=== PATIENT | male | born 1965 ===

== ENCOUNTER 2017-05-26 18:00 | Inpatient (IN) | payer OTHER ==
[~2017-05-26 18:00] MED LIST: Iopamidol 755 MG/ML 50 ML Bottle IV ONE
[2017-05-26] MEDS ORDERED: Sodium Chloride 0.9% 1,000 ML IV ONE (18:34)
[2017-05-26] MEDS ORDERED: Acetaminophen 325 MG Tab PO ONE (18:35)
--- NOTE | 2017-05-26 18:44 | EDM.PDOC ---
ED HPI GENERAL MEDICAL PROBLEM - General Chief Complaint: Fever Stated Complaint: PAIN IN RIGHT LEG Time Seen by Provider: 05/26/17 18:39 Source of Information: Reports: Patient History Limitations: Reports: No Limitations - History of Present Illness INITIAL COMMENTS - FREE TEXT/NARRATIVE: HISTORY AND PHYSICAL: History of present illness: Patient is a 52-year-old male who presents to the emergency room today with complaints of redness and swelling to the right lateral calf. He states that this redness and swelling started approximately one week ago and has been increasingly getting worse. He does have a history of venous stasis ulcer to the right lower extremity. Has not recently had any injury, trauma, numbness or tingling to the right lower extremity. Denies any fever, chills, chest pain, shortness of breath, cough, abdominal pain, nausea, vomiting or diarrhea. Patient is ambulatory, does have increased pain to the right leg. Denies any past medical history including diabetes. Primary language is Serbian. [employer] services have been used for translation purposes. Review of systems: As per history of present illness and below otherwise all systems reviewed and negative. Past medical history: As per history of present illness and as reviewed below otherwise noncontributory. Surgical history: As per history of present illness and as reviewed below otherwise noncontributory. Social history: No reported history of drug or alcohol abuse. Family history: As per history of present illness and as reviewed below otherwise noncontributory. Physical exam: General: Nontoxic-appearing 52-year-old male. Alert and oriented. He is Serbian-speaking. Modi no acute distress. HEENT: Atraumatic, normocephalic, pupils reactive, negative for conjunctival pallor or scleral icterus, mucous membranes moist, throat clear, neck supple, nontender, trachea midline. Lungs: Clear to auscultation, breath sounds equal bilaterally, chest nontender. Heart: S1S2, regular, negative for clicks, rubs, or JVD. Abdomen: Soft, nondistended, nontender. Negative for masses or hepatosplenomegaly. Negative for costovertebral tenderness. Pelvis: Stable nontender. Genitourinary: Deferred. Rectal: Deferred. Extremities/Skin: Atraumatic, was all extremities per self without deficits or difficulty. The right calf is measuring 18-1/2 inches, with a diffuse area of erythema and soft tissue swelling that measures approximately 7 cm x 7 cm with irregular border. Venous stasis ulcer noted from medial ankle to the top of the foot, pedal pulses palpable. Left calf measures 16-1/2 inches, no erythema or swelling noted. negative for cords or calf pain. Neurovascular unremarkable. Neuro: Awake, alert, oriented. Cranial nerves II through XII unremarkable. Cerebellum unremarkable. Motor and sensory unremarkable throughout. Exam nonfocal. D-dimer was elevated and a right lower extremity venous ultrasound was ordered. Dr. Cantrell was consult on this case. Is agreeable to keeping him as inpatient for cellulitis. He does request that a CTA be added on to his orders. Vancomycin has been ordered per Óscar's request. Since vitals remained stable. He is agreeable to staying for IV antibiotics. Denies any further questions at this time. 2030- Dr. Cantrell here with patient. Diagnostics: CBC, CMP, blood cultures 2, lactic acid, x-ray right tib-fib Therapeutics: Tylenol, IV fluid Impression: Cellulitis Plan: Inpatient admission to [facility] for Cellulitis Definitive disposition and diagnosis as appropriate pending reevaluation and review of above. Duration: Day(s): Location: Reports: Lower Extremity, Right Right Lower Leg Pain Score (Numeric/FACES): 9 - Related Data Allergies Allergy/AdvReac Type Severity Reaction Status Date / Time No Known Allergies Allergy Verified 05/26/17 18:35 Home Meds: Home Meds . [No Known Home Meds] 05/26/17 [History] ED ROS GENERAL - Review of Systems Review Of Systems: ROS reveals no pertinent complaints other than HPI. ED EXAM, SKIN/RASH Exam: See Below (See dictation) Course - Vital Signs Last Recorded V/S: Last Vital Signs Temp 101.4 F H 05/26/17 18:22 Pulse 106 H 05/26/17 18:22 Resp 16 05/26/17 18:22 BP 159/80 H 05/26/17 18:22 Pulse Ox 98 05/26/17 18:22 - Orders/Labs/Meds Orders: Active Orders 24 hr Category Date Time Status Ang Chest [CT] Stat Exams 05/26/17 19:42 Ordered Tibia Fibula Rt [CR] Stat Exams 05/26/17 18:34 Taken Venous Doppler Lwr Ext Rt [US] Stat Exams 05/26/17 19:27 Taken CULTURE BLOOD [BC] Stat Lab 05/26/17 18:52 Received CULTURE BLOOD [BC] Stat Lab 05/26/17 18:59 Received Vancomycin [Vancocin] 1 gm Med 05/26/17 19:42 Active Sodium Chloride 0.9% [Normal Saline] 250 ml IV ONETIME Blood Culture x2 Reflex Set [OM.PC] Stat Oth 05/26/17 18:35 Ordered Medication Orders Vancomycin HCl 1 gm/ Sodium (Chloride) 250 mls @ 166 mls/hr IV ONETIME ONE Stop: 05/26/17 21:12 Labs: Laboratory Tests 05/26/17 05/26/17 05/26/17 Range/Units 18:52 18:52 18:52 WBC 12.70 H (4.0-11.0) K/uL RBC 5.28 (4.50-5.90) M/uL Hgb 16.2 (13.0-17.0) g/dL Hct 47.4 (38.0-50.0) % MCV 89.8 (80.0-98.0) fL MCH 30.7 (27.0-32.0) pg MCHC 34.2 (31.0-37.0) g/dL RDW Std Deviation 44.1 (28.0-62.0) fl RDW Coeff of Min 14 (11.0-15.0) % Plt Count 149 L (150-400) K/uL MPV 10.30 (7.40-12.00) fL Neut % (Auto) 79.3 (48.0-80.0) % Lymph % (Auto) 11.4 L (16.0-40.0) % Kidder % (Auto) 8.7 (0.0-15.0) % Eos % (Auto) 0.4 (0.0-7.0) % Baso % (Auto) 0.2 (0.0-1.5) % Neut # (Auto) 10.1 H (1.4-5.7) K/uL Lymph # (Auto) 1.5 (0.6-2.4) K/uL Kidder # (Auto) 1.1 H (0.0-0.8) K/uL Eos # (Auto) 0.1 (0.0-0.7) K/uL Baso # (Auto) 0.0 (0.0-0.1) K/uL Nucleated RBC % 0.0 /100WBC Nucleated RBCs # 0 K/uL D-Dimer, Quantitative (0.0-0.52) mg/LFEU Lactate 3.8 H (0.20-2.00) mmol/L Sodium 142 (136-146) mmol/L Potassium 4.1 (3.5-5.1) mmol/L Chloride 106 (98-110) mmol/L Carbon Dioxide 23 (21-31) mmol/L BUN 21 (6.0-23.0) mg/dL Creatinine 1.2 (0.6-1.5) mg/dL Est Cr Clr Drug Dosing 78.25 mL/min Estimated GFR (MDRD) > 60.0 ml/min Glucose 134 H (60-110) mg/dL Calcium 9.8 (8.8-10.8) mg/dL Total Bilirubin 0.8 (0.1-1.5) mg/dL AST 25 (5-40) IU/L ALT 28 (8-54) IU/L Alkaline Phosphatase 113 (40-150) Total Protein 8.3 H (6.0-8.0) g/dL Albumin 4.6 (3.5-5.0) g/dL Globulin 3.7 H (2.0-3.5) g/dL Albumin/Globulin Ratio 1.2 L (1.3-2.8) 05/26/ Range/Units 18:52 WBC (4.0-11.0) K/uL RBC (4.50-5.90) M/uL Hgb (13.0-17.0) g/dL Hct (38.0-50.0) % MCV (80.0-98.0) fL MCH (27.0-32.0) pg MCHC (31.0-37.0) g/dL RDW Std Deviation (28.0-62.0) fl RDW Coeff of Min (11.0-15.0) % Plt Count (150-400) K/uL MPV (7.40-12.00) fL Neut % (Auto) (48.0-80.0) % Lymph % (Auto) (16.0-40.0) % Kidder % (Auto) (0.0-15.0) % Eos % (Auto) (0.0-7.0) % Baso % (Auto) (0.0-1.5) % Neut # (Auto) (1.4-5.7) K/uL Lymph # (Auto) (0.6-2.4) K/uL Kidder # (Auto) (0.0-0.8) K/uL Eos # (Auto) (0.0-0.7) K/uL Baso # (Auto) (0.0-0.1) K/uL Nucleated RBC % /100WBC Nucleated RBCs # K/uL D-Dimer, Quantitative 1.23 H (0.0-0.52) mg/LFEU Lactate (0.20-2.00) mmol/L Sodium (136-146) mmol/L Potassium (3.5-5.1) mmol/L Chloride (98-110) mmol/L Carbon Dioxide (21-31) mmol/L BUN (6.0-23.0) mg/dL Creatinine (0.6-1.5) mg/dL Est Cr Clr Drug Dosing mL/min Estimated GFR (MDRD) ml/min Glucose (60-110) mg/dL Calcium (8.8-10.8) mg/dL Total Bilirubin (0.1-1.5) mg/dL AST (5-40) IU/L ALT (8-54) IU/L Alkaline Phosphatase (40-150) Total Protein (6.0-8.0) g/dL Albumin (3.5-5.0) g/dL Globulin (2.0-3.5) g/dL Albumin/Globulin Ratio (1.3-2.8) Meds: Medications Generic Name Dose Route Start Last Admin Trade Name Freq PRN Reason Stop Dose Admin Vancomycin HCl 1 gm/ Sodium 250 mls @ 166 mls/hr 05/26/17 19:42 Chloride IV 05/26/17 21:12 ONETIME ONE Discontinued Medications Generic Name Dose Route Start Last Admin Trade Name Freq PRN Reason Stop Dose Admin Acetaminophen 650 mg 05/26/17 18:35 05/26/17 19:05 Tylenol PO 05/26/17 18:36 650 mg NOW ONE Administration Sodium Chloride 1,000 mls @ 999 mls/hr 05/26/17 18:34 05/26/17 19:04 Normal Saline IV 05/26/17 19:34 999 mls/hr STAT ONE Administration Departure - Departure Time of Disposition: 20:32 Disposition: Admitted As Inpatient 65 Clinical Impression: Cellulitis Qualifiers: Site of cellulitis: extremity Site of cellulitis of extremity: lower extremity Laterality: right Qualified Code(s): L03.115 - Cellulitis of right lower limb - Discharge Information - My Orders Last 24 Hours: My Active Orders 05/26/17 18:34 Tibia Fibula Rt [CR] Stat 05/26/17 18:35 Blood Culture x2 Reflex Set [OM.PC] Stat 05/26/17 18:52 CULTURE BLOOD [BC] Stat 05/26/17 18:59 CULTURE BLOOD [BC] Stat 05/26/17 19:27 Venous Doppler Lwr Ext Rt [US] Stat 05/26/17 19:42 Ang Chest [CT] Stat Vancomycin [Vancocin] 1 gm Sodium Chloride 0.9% [Normal Saline] 250 ml IV ONETIME - Assessment/Plan Last 24 Hours: My Active Orders 05/26/17 18:34 Tibia Fibula Rt [CR] Stat 05/26/17 18:35 Blood Culture x2 Reflex Set [OM.PC] Stat 05/26/17 18:52 CULTURE BLOOD [BC] Stat 05/26/17 18:59 CULTURE BLOOD [BC] Stat 05/26/17 19:27 Venous Doppler Lwr Ext Rt [US] Stat 05/26/17 19:42 Ang Chest [CT] Stat Vancomycin [Vancocin] 1 gm Sodium Chloride 0.9% [Normal Saline] 250 ml IV ONETIME
[2017-05-26 19:23] LABS: CHLORIDE,CL 106 mmol/L (98-110); SODIUM,NA 142 mmol/L (136-146)
--- NOTE | 2017-05-26 20:45 | PCM.HP ---
H&P History of Present Illness - General Date of Service: 05/26/17 Admit Problem/Dx: Cellulites Source of Information: Patient, Chief Compliance Officer History Limitations: Reports: No Limitations - History of Present Illness Initial Comments - Free Text/Narative: 52-year-old Greenlandic only speaking male presenting to emergency department with chief complaint of redness and swelling to his right lateral calf 1 week. History is obtained through wheel buffer. Patient states is he began to have pain with associated redness and swelling to his right lower calf approximately one week ago. Since that time it has been steadily getting worse. He does have a history of venous stasis ulcer to the right lower extremity. Denies any recent trauma, numbness, tingling, or decreased range of motion. Patient denies any shortness of breath or hemoptysis and has no history of claudication. Patient currently denies any fever, chills, chest pain, palpitations, shortness breath, syncopal episodes, focal neurologic deficits, nausea, vomiting, or diarrhea. He takes no medications at home and denies diabetes. In the emergency department CBC revealed leukocytosis of 12.7 K, an elevated lactate at 3.8, with positive d-dimer 1.23. CMP was unremarkable. Plain films of tibia-fibula, venous Doppler, and CTA of chest were ordered but results unavailable at time of dictation. They will be followed up but patient has low probability of PE by well's criteria. Patient was febrile with maximum temp of 103 and tachycardic with maximum heart rate of 106. Normal O2 saturations with elevated blood pressure 159/80. Blood cultures were obtained and patient was started on vancomycin IV in the emergency department. Patient was admitted for sepsis secondary cellulitis. Right Lower Leg Pain Score (Numeric/FACES): 9 - Related Data Allergies/Adverse Reactions: Allergies Allergy/AdvReac Type Severity Reaction Status Date / Time No Known Allergies Allergy Verified 05/26/17 18:35 Home Medications: Home Meds . [No Known Home Meds] 05/26/17 [History] Past Medical History Other Musculoskeletal History: leg ulcer RLE - Infectious Disease History Infectious Disease History: Reports: Chicken Pox Social & Family History - Tobacco Use Smoking Status *Q: Current Every Day Smoker Years of Tobacco use: 20 Packs/Tins Daily: 0.1 - Caffeine Use Caffeine Use: Reports: Coffee - Alcohol Use Number of Drinks Per Day: 4 - Recreational Drug Use Recreational Drug Use: No H&P Review of Systems - Review of Systems: Review Of Systems: See Below General: Reports: Fever, Chills. Denies: Weakness, Fatigue HEENT: Denies: Headaches, Sore Throat Pulmonary: Denies: Shortness of Breath, Wheezing, Cough, Sputum Cardiovascular: Denies: Chest Pain, Palpitations, Syncope Gastrointestinal: Denies: Abdominal Pain, Black Stool, Bloody Stool, Nausea, Vomiting Genitourinary: Denies: Dysuria, Hematuria Musculoskeletal: Reports: Leg Pain. Denies: Neck Pain Skin: Reports: Mottled, Dryness, Change in Color. Denies: Cyanosis Psychiatric: Denies: Confusion Neurological: Denies: Confusion, Dizziness, Headache Hematologic/Lymphatic: Denies: Anemia Exam - Exam Exam: See Below - Vital Signs Vital Signs: Last Vital Signs Temp 103 F H 05/26/17 20:35 Pulse 98 05/26/17 20:35 Resp 19 05/26/17 20:35 BP 158/89 H 05/26/17 20:35 Pulse Ox 98 05/26/17 20:35 Weight: 100 kg - Exam Quality Assessment: DVT Prophylaxis General: Alert, Oriented, Cooperative HEENT: Conjunctiva Clear, EACs Clear, EOMI, Hearing Intact, Mucosa Moist & [place] , Nares Patent, Normal Nasal Septum, Posterior Pharynx Clear, PERRLA Neck: Supple, Trachea Midline, 2 Lungs: Clear to Auscultation, Normal Respiratory Effort Cardiovascular: Regular Rhythm, Normal S1, Normal S2, Tachycardia GI/Abdominal Exam: Normal Bowel Sounds, Soft, Non-Tender, No Organomegaly, No Distention Rectal (Males) Exam: Prostate Normal Back Exam: Normal Inspection Extremities: Normal Capillary Refill, Pedal Edema, Leg Pain, Increased Warmth, Redness Peripheral Pulses: 2+: Radial (L), Radial (R), Posterior Tibial (L), Posterior Tibial (R), Dorsalis Pedis (L), Dorsalis Pedis (R) Skin: Warm, Dry, Intact, Rash, Other (erythema to right lateral lower extremity to appoximately 6 inches above ankle on anteriorolateral surface) Neurological: Cranial Nerves Intact, Reflexes Equal Bilateral Neuro Extensive - Mental Status: Alert, Oriented x3, Normal Mood/Affect, Normal Cognition Neuro Extensive - Motor, Sensory, Reflexes: CN II-XII Intact Psychiatric: Alert, Normal Affect, Normal Mood - Patient Data Result Diagrams: 05/26/17 18:52 05/26/17 18:52 *Q Meaningful Use (ADM) - VTE *Q VTE Criteria *Q: - Stroke *Q Stroke Criteria *Q: - AMI *Q AMI Criteria *Q: - Problem List (1) Sepsis SNOMED Code(s): 41844558 ICD Code: A41.9 - SEPSIS, UNSPECIFIED ORGANISM Status: Suspected Priority : High Current Visit: Yes Qualifiers: Sepsis type: methicillin resistant Staphylococcus aureus Qualified Code(s) : A41.02 - Sepsis due to Methicillin resistant Staphylococcus aureus (2) Cellulitis SNOMED Code(s): 874798734 ICD Code: L03.90 - CELLULITIS, UNSPECIFIED Status: Acute Priority: High Current Visit: Yes Qualifiers: Site of cellulitis: extremity Site of cellulitis of extremity: lower extremity Laterality: right Qualified Code(s): L03.115 - Cellulitis of right lower limb Problem List Initiated/Reviewed/Updated: Yes Orders Last 24hrs: Medication Orders Vancomycin HCl 1 gm/ Sodium (Chloride) 250 mls @ 166 mls/hr IV ONETIME ONE Stop: 05/26/17 21:12 Last Admin: 05/26/17 20:33 Dose: 166 mls/hr Assessment/Plan Comment:: 52-year-old male admitted sepsis secondary to cellulitis of the right lower extremity. Sepsis: Secondary to cellulitis. Will treat with vancomycin. Patient received 1 L normal saline in ED we'll continue IVF assess patient with normal saline 250 mL's per hour with lactate every 4 hours until less than 2. Cellulitis: As above treat with vancomycin. Patient has this history of venous ulcers will get A1c to rule out diabetes. VTE proph: Lovenox, SCD Dispo: 2-3 days
[2017-05-26] MEDS ORDERED: Temazepam 15 MG Cap PO PRN (21:07)
[2017-05-26] MEDS ORDERED: Morphine 10 MG/ML Syringe IVPUSH PRN (21:07)
[2017-05-26] MEDS ORDERED: Ondansetron 4 MG Tab.DIS PO PRN (21:07)
[2017-05-26] MEDS: Sodium Chloride 0.9% 1,000 ML IV SCH (21:28)
[2017-05-26] MEDS: oxyCODONE 5 MG Tab PO PRN (21:48)
[2017-05-26] MEDS: Enoxaparin 40 MG/0.4 ML Syringe SUBCUT SCH (21:50)
[2017-05-26] MEDS ORDERED: Pneumococcal Polyvalent-23 Vaccine 0.5 ML SDV IM ONE (23:41)
[2017-05-27] MEDS: Acetaminophen 325 MG Tab PO PRN ×3 (00:09→17:46)
[2017-05-27] MEDS: Sodium Chloride 0.9% 1,000 ML IV SCH ×4 (03:26→21:17)
[2017-05-27] MEDS: oxyCODONE 5 MG Tab PO PRN ×3 (03:33→17:47)
[2017-05-27 05:57] LABS: CHLORIDE,CL 108 mmol/L (98-110); SODIUM,NA 135 mmol/L (136-146)
[2017-05-27] MEDS ORDERED: Vancomycin 1.5 GM in Sodium Chloride 0.9% 500 ML IV SCH (06:00)
[2017-05-27] MEDS ORDERED: Vancomycin 1 GM, Vancomycin 500 MG in Sodium Chloride 0.9% 500 ML IV SCH (06:13)
[2017-05-27] MEDS: Vancomycin 1 GM, Vancomycin 500 MG in Sodium Chloride 0.9% 500 ML IV SCH ×2 (06:40→18:46)
[2017-05-27] MEDS ORDERED: Morphine 2 MG/ML Syringe IVPUSH PRN (07:29)
--- NOTE | 2017-05-27 09:00 | PCM.PN ---
- General Info Date of Service: 05/27/17 Admission Dx/Problem (Free Text): Cellulites Subjective Update: Still having considerable pain to his R lower extremity. Fever overnight at 0400. No n/v, diarrhea, or constipation. Eating and drinking well. Functional Status: Reports: Pain Controlled, Tolerating Diet - Review of Systems General: Reports: Fever, Fatigue HEENT: Denies: Headaches, Visual Changes Pulmonary: Denies: Shortness of Breath, Cough Cardiovascular: Reports: Edema. Denies: Chest Pain, Palpitations Gastrointestinal: Denies: Abdominal Pain, Constipation, Diarrhea, Nausea, Vomiting Genitourinary: Denies: Dysuria Musculoskeletal: Reports: Leg Pain. Denies: Neck Pain Neurological: Denies: Confusion, Dizziness Psychiatric: Denies: Confusion - Patient Data Vitals - Most Recent: Last Vital Signs Temp 100.1 F 05/27/17 08:20 Pulse 93 05/27/17 08:20 Resp 16 05/27/17 08:20 BP 133/73 05/27/17 08:20 Pulse Ox 98 05/27/17 08:20 Weight - Most Recent: 100 kg I&O - Last 24 Hours: Intake & Output 05/26/17 05/27/17 05/27/17 22:59 06:59 14:59 Intake Total 2280 Output Total 520 Balance 1760 Lab Results Last 24 Hours: Laboratory Results - last 24 hr 05/26/17 05/27/17 05/27/17 Range/Units 21:20 01:00 05:18 WBC 12.93 H (4.0-11.0) K/uL RBC 4.65 (4.50-5.90) M/uL Hgb 13.9 (13.0-17.0) g/dL Hct 41.1 (38.0-50.0) % MCV 88.4 (80.0-98.0) fL MCH 29.9 (27.0-32.0) pg MCHC 33.8 (31.0-37.0) g/dL RDW Std Deviation 44.2 (28.0-62.0) fl RDW Coeff of Min 14 (11.0-15.0) % Plt Count 111 L (150-400) K/uL MPV 10.30 (7.40-12.00) fL Neut % (Auto) 85.9 H (48.0-80.0) % Lymph % (Auto) 6.2 L (16.0-40.0) % Leon % (Auto) 7.7 (0.0-15.0) % Eos % (Auto) 0.0 (0.0-7.0) % Baso % (Auto) 0.2 (0.0-1.5) % Neut # (Auto) 11.1 H (1.4-5.7) K/uL Lymph # (Auto) 0.8 (0.6-2.4) K/uL Leon # (Auto) 1.0 H (0.0-0.8) K/uL Eos # (Auto) 0.0 (0.0-0.7) K/uL Baso # (Auto) 0.0 (0.0-0.1) K/uL Nucleated RBC % 0.0 /100WBC Nucleated RBCs # 0 K/uL Lactate 1.1 1.1 (0.20-2.00) mmol/L Sodium (136-146) mmol/L Potassium (3.5-5.1) mmol/L Chloride (98-110) mmol/L Carbon Dioxide (21-31) mmol/L BUN (6.0-23.0) mg/dL Creatinine (0.6-1.5) mg/dL Est Cr Clr Drug Dosing mL/min Estimated GFR (MDRD) ml/min Glucose (60-110) mg/dL Hemoglobin A1c (0.0-6.0) % Calcium (8.8-10.8) mg/dL 05/27/17 05/27/17 Range/Units 05:18 05:18 WBC (4.0-11.0) K/uL RBC (4.50-5.90) M/uL Hgb (13.0-17.0) g/dL Hct (38.0-50.0) % MCV (80.0-98.0) fL MCH (27.0-32.0) pg MCHC (31.0-37.0) g/dL RDW Std Deviation (28.0-62.0) fl RDW Coeff of Min (11.0-15.0) % Plt Count (150-400) K/uL MPV (7.40-12.00) fL Neut % (Auto) (48.0-80.0) % Lymph % (Auto) (16.0-40.0) % Leon % (Auto) (0.0-15.0) % Eos % (Auto) (0.0-7.0) % Baso % (Auto) (0.0-1.5) % Neut # (Auto) (1.4-5.7) K/uL Lymph # (Auto) (0.6-2.4) K/uL Leon # (Auto) (0.0-0.8) K/uL Eos # (Auto) (0.0-0.7) K/uL Baso # (Auto) (0.0-0.1) K/uL Nucleated RBC % /100WBC Nucleated RBCs # K/uL Lactate (0.20-2.00) mmol/L Sodium 135 L (136-146) mmol/L Potassium 3.4 L (3.5-5.1) mmol/L Chloride 108 (98-110) mmol/L Carbon Dioxide 18 L (21-31) mmol/L BUN 14 (6.0-23.0) mg/dL Creatinine 1.0 (0.6-1.5) mg/dL Est Cr Clr Drug Dosing 104.88 mL/min Estimated GFR (MDRD) > 60.0 ml/min Glucose 141 H (60-110) mg/dL Hemoglobin A1c 5.5 (0.0-6.0) % Calcium 7.9 L (8.8-10.8) mg/dL Med Orders - Current: Current Medications Acetaminophen (Tylenol) 650 mg PO Q4H PRN PRN Reason: Pain (Mild 1-3)/fever Last Admin: 05/27/17 04:32 Dose: 650 mg Enoxaparin Sodium (Lovenox) 40 mg SUBCUT DAILY [facility] Last Admin: 05/26/17 21:50 Dose: 40 mg Sodium Chloride (Normal Saline) 1,000 mls @ 250 mls/hr IV ASDIRECTED [facility] Last Admin: 05/27/17 03:26 Dose: 250 mls/hr Vancomycin HCl 1 gm/Vancomycin HCl 500 mg/ Sodium Chloride 500 mls @ 333.333 mls/hr IV Q12H [facility] Last Admin: 05/27/17 06:40 Dose: 333.333 mls/hr Morphine Sulfate (Morphine) 2 mg IVPUSH Q2H PRN PRN Reason: Pain (severe 7-10) Ondansetron HCl (Zofran Odt) 4 mg PO Q4H PRN PRN Reason: nausea, able to take PO Oxycodone HCl (Oxycodone) 5 mg PO Q4H PRN PRN Reason: Pain (moderate 4-6) Last Admin: 05/27/17 03:33 Dose: 5 mg Temazepam (Restoril) 15 mg PO BEDTIME PRN PRN Reason: Sleep Last Admin: 05/26/17 21:48 Dose: 15 mg Vancomycin HCl (Pharmacy To Dose - Vancomycin) 1 dose .XX ASDIRECTED [facility] Discontinued Medications Acetaminophen (Tylenol) 650 mg PO NOW ONE Stop: 05/26/17 18:36 Last Admin: 05/26/17 19:05 Dose: 650 mg Sodium Chloride (Normal Saline) 1,000 mls @ 999 mls/hr IV STAT ONE Stop: 05/26/17 19:34 Last Admin: 05/26/17 19:04 Dose: 999 mls/hr Vancomycin HCl 1 gm/ Sodium (Chloride) 250 mls @ 166 mls/hr IV ONETIME ONE Stop: 05/26/17 21:12 Last Admin: 05/26/17 20:33 Dose: 166 mls/hr Vancomycin HCl 1.5 gm/ Sodium (Chloride) 500 mls @ 333.333 mls/hr IV Q12H [facility] Last Admin: 05/27/17 07:32 Dose: Not Given Iopamidol (Isovue-370 (76%)) 50 ml IV .STK-MED ONE Stop: 05/26/17 07:26 Morphine Sulfate (Morphine) 2 mg IVPUSH Q2H PRN PRN Reason: Pain (severe 7-10) Stop: 05/27/17 21:09 Pneumococcal Polyvalent Vaccine (Pneumovax 23) 0.5 ml IM .ONCE ONE Stop: 05/26/17 23:42 - Exam Quality Assessment: DVT Prophylaxis General: Alert, Oriented, Cooperative, No Acute Distress HEENT: Pupils Equal, Pupils Reactive, EOMI, Mucous Membr. Moist/[place] Neck: Supple Lungs: Clear to Auscultation, Normal Respiratory Effort Cardiovascular: Regular Rate, Regular Rhythm GI/Abdominal Exam: Normal Bowel Sounds, Soft, Non-Tender, No Organomegaly, No Distention Back Exam: Normal Inspection Extremities: Non-Tender, Normal Capillary Refill, Pedal Edema, Leg Pain, Increased Warmth, Redness (Erythema improving but still warm and tender with +2 charlie to right anterolater lower leg) Skin: Warm, Dry, Intact Wound/Incisions: Healing Well Neurological: No New Focal Deficit Psy/Mental Status: Alert, Normal Affect, Normal Mood - Problem List & Annotations (1) Sepsis SNOMED Code(s): 03369044 Code(s): A41.9 - SEPSIS, UNSPECIFIED ORGANISM Status: Resolved Priority: High Current Visit: Yes Qualifiers: Sepsis type: methicillin resistant Staphylococcus aureus Qualified Code(s) : A41.02 - Sepsis due to Methicillin resistant Staphylococcus aureus (2) Cellulitis SNOMED Code(s): 635583968 Code(s): L03.90 - CELLULITIS, UNSPECIFIED Status: Acute Priority: High Current Visit: Yes Qualifiers: Site of cellulitis: extremity Site of cellulitis of extremity: lower extremity Laterality: right Qualified Code(s): L03.115 - Cellulitis of right lower limb - Problem List Review Problem List Initiated/Reviewed/Updated: Yes - My Orders Last 24 Hours: My Active Orders 05/26/17 21:07 Patient Status [ADT] Routine Intake and Output [RC] Q12H Oxygen Therapy [RC] PRN Up With Assistance [RC] ASDIRECTED VTE/DVT Education [RC] PER UNIT ROUTINE Vital Signs [RC] Q4H Acetaminophen [Tylenol] 650 mg PO Q4H PRN Ondansetron [Zofran ODT] 4 mg PO Q4H PRN Temazepam [Restoril] 15 mg PO BEDTIME PRN oxyCODONE 5 mg PO Q4H PRN Resuscitation Status Routine 05/26/17 21:08 Antiembolic Devices [RC] PER UNIT ROUTINE Sequential Compression Device [OM.PC] Per Unit Routine 05/26/17 21:15 Enoxaparin [Lovenox] 40 mg SUBCUT DAILY Sodium Chloride 0.9% [Normal Saline] 1,000 ml IV ASDIRECTED Vancomycin Pharmacy to Dose [Pharmacy to Dose - Vancomycin] 1 dose .XX ASDIRECTED 05/27/17 06:00 Vancomycin 1 gm Vancomycin 500 mg Sodium Chloride 0.9% [Normal Saline] 500 ml IV Q12H 05/27/17 07:29 Morphine 2 mg IVPUSH Q2H PRN 05/27/17 Breakfast Regular Diet [DIET] 05/28/17 05:11 BASIC METABOLIC PANEL,BMP [CHEM] AM CBC WITH AUTO DIFF [HEME] AM 05/29/17 05:11 BASIC METABOLIC PANEL,BMP [CHEM] AM CBC WITH AUTO DIFF [HEME] AM 05/30/17 05:11 BASIC METABOLIC PANEL,BMP [CHEM] AM CBC WITH AUTO DIFF [HEME] AM - Plan Plan:: 52-year-old male admitted sepsis secondary to cellulitis of the right lower extremity. Sepsis: Lactate resolved will slow IVF resus to 125 ml/hr. Cont. vancomycin day 2. Cellulitis: As above treat with vancomycin. Patient has this history of venous ulcers. A1c 5.5. Fever early this am 101.8 0400. R lower extremity x-ray: No acute osseous injury or imaging evidence of osteomyelitis. Doppler: No DVT CTA : unremakable, no PE, aortic dissection, or pneumonia VTE proph: Lovenox, SCD Dispo: 2-3 days
[2017-05-27] MEDS ORDERED: Potassium Chloride 20 MEQ Tab.ER PO ONE (09:50)
[2017-05-27] MEDS ORDERED: Calcium Carbonate 500 MG Tab.Chew PO ONE (10:03)
[2017-05-27] MEDS: Enoxaparin 40 MG/0.4 ML Syringe SUBCUT SCH (10:09)
[2017-05-27] MEDS ORDERED: oxyCODONE 5 MG Tab PO ONE (10:46)
--- NOTE | 2017-05-27 11:40 | CR ---
EXAM DATE: 05/26/17 PATIENT'S AGE: 52 Patient: CARLA PARIS Facility: [place], [place] Site . Site : 12/09/1964 Study: XRay Extremity Right tib/fib [id number]/26/2017 7:31:16 PM Ordering Physician: Doctor Iglesias Final Report: INDICATION: Pain and swelling. Redness. TECHNIQUE: Tibia-fibula radiograph 2 views. Total of 4 images. COMPARISON: None FINDINGS: No fracture of the right tibia or fibula. Mild degenerative changes of the right knee. No right knee joint effusion. No medial or lateral right ankle soft tissue swelling. Large plantar calcaneal spur. No ankle effusion. No abnormal periosteal reaction. No radiopaque soft tissue foreign body or soft tissue air. IMPRESSION: 1. No acute osseous injury or imaging evidence of osteomyelitis. Dictated by Obey Harper MD @ 05/26/2017 9:01:34 PM Dictated by: Obey Harper MD @ 05/26/2017 21:01:37 (Electronic Signature) Report Signed by Proxy. [facility]ITALCeferino
--- NOTE | 2017-05-27 11:43 | CT ---
EXAM DATE: 05/26/17 PATIENT'S AGE: 52 Patient: CARLA PARIS Facility: [place], [place] Site . Site : 12/09/1964 Study: CT Chest Angio [id number]/26/2017 8:33:36 PM Ordering Physician: Doctor Iglesias Final Report: INDICATION: Elevated D-dimer TECHNIQUE: CT chest pulmonary angiogram acquired with IV contrast. 50 cc Isovue 370 COMPARISON: None FINDINGS: Cardiovascular structures: Normal vascular enhancement of the pulmonary arteries , no sign of pulmonary embolism. Heart size is normal. No sign of aneurysm or dissection in the thoracic aorta. Mediastinum and joni: No mass or adenopathy. Lungs: No infiltrates. 3 millimeters subpleural nodule right upper and right lower lobes. Pleura and pericardium: No effusions. Chest wall and axilla: No mass or adenopathy. Bones: No significant findings. Upper abdomen: Unremarkable. IMPRESSION: Unremarkable chest CT angiogram. Specifically, no pulmonary embolism, aortic dissection, or pneumonia. Dictated by Devin Duran MD @ 05/26/2017 10:21:34 PM Dictated by: Devin Duran MD @ 05/26/2017 22:21:41 (Electronic Signature) Report Signed by Proxy. ANDRÉS
--- NOTE | 2017-05-27 11:43 | US ---
EXAM DATE: 05/26/17 PATIENT'S AGE: 52 Patient: CARLA PARIS Facility: [place], [place] Site . Site : 12/09/1964 Study: US Extremity Right [id number]/26/2017 8:19:24 PM Ordering Physician: Doctor Iglesias Final Report: CLINICAL HISTORY: Pain and swelling right lower extremity TECHNIQUE: A compression venous ultrasound exam was performed of the right lower extremity using costa-scale imaging, color Doppler and spectral Doppler analysis. FINDINGS: Sonographic imaging of the right lower extremity demonstrates normal compressibility and color Doppler venous blood flow within the common femoral vein, deep femoral vein, and the proximal greater saphenous vein. Within the thigh, the femoral vein is patent and compressible. At a lower level, the popliteal and posterior tibial veins also show normal compressibility and color Doppler venous blood flow. Limited imaging of the contralateral groin demonstrates a normal spectral waveform and color Doppler venous blood flow within the left common femoral vein. Prominent reactive lymphadenopathy in the right inguinal area. Cellulitis right calf IMPRESSION: Normal venous ultrasound exam. No evidence of deep vein thrombosis within the right lower extremity. Dictated by Danyell Rdz MD @ May 26 2017 9:47PM (Electronic Signature) Report Signed by Proxy. ANDRÉS
[2017-05-28] MEDS: Vancomycin 1 GM, Vancomycin 500 MG in Sodium Chloride 0.9% 500 ML IV SCH ×2 (05:12→18:43)
[2017-05-28 06:10] LABS: CHLORIDE,CL 107 mmol/L (98-110); SODIUM,NA 137 mmol/L (136-146)
[2017-05-28] MEDS: Enoxaparin 40 MG/0.4 ML Syringe SUBCUT SCH (08:51)
[2017-05-28] MEDS ORDERED: chlorproMAZINE 50 MG/2 ML Amp IM ONE ×2 (10:07→15:59)
--- NOTE | 2017-05-28 11:37 | PCM.PN ---
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 - Patient Data Vitals - Most Recent: Last Vital Signs Temp 36.6 C 05/28/17 08:00 Pulse 88 05/28/17 08:00 Resp 22 H 05/28/17 08:00 BP 108/73 05/28/17 08:00 Pulse Ox 95 05/28/17 08:00 Weight - Most Recent: 100 kg I&O - Last 24 Hours: Intake & Output 05/27/17 05/28/17 05/28/17 22:59 06:59 14:59 Intake Total 1000 1560 Output Total 1430 Balance 1000 130 Lab Results Last 24 Hours: Laboratory Results - last 24 hr 05/28/17 05/28/17 Range/Units 04:44 04:44 WBC 13.95 H (4.0-11.0) K/uL RBC 4.39 L (4.50-5.90) M/uL Hgb 13.2 (13.0-17.0) g/dL Hct 38.4 (38.0-50.0) % MCV 87.5 (80.0-98.0) fL MCH 30.1 (27.0-32.0) pg MCHC 34.4 (31.0-37.0) g/dL RDW Std Deviation 42.8 (28.0-62.0) fl RDW Coeff of Min 13 (11.0-15.0) % Plt Count 112 L (150-400) K/uL MPV 10.40 (7.40-12.00) fL Neut % (Auto) 85.2 H (48.0-80.0) % Lymph % (Auto) 6.4 L (16.0-40.0) % Hopkins % (Auto) 8.3 (0.0-15.0) % Eos % (Auto) 0.0 (0.0-7.0) % Baso % (Auto) 0.1 (0.0-1.5) % Neut # (Auto) 11.9 H (1.4-5.7) K/uL Lymph # (Auto) 0.9 (0.6-2.4) K/uL Hopkins # (Auto) 1.2 H (0.0-0.8) K/uL Eos # (Auto) 0.0 (0.0-0.7) K/uL Baso # (Auto) 0.0 (0.0-0.1) K/uL Nucleated RBC % 0.0 /100WBC Nucleated RBCs # 0 K/uL Sodium 137 (136-146) mmol/L Potassium 3.6 (3.5-5.1) mmol/L Chloride 107 (98-110) mmol/L Carbon Dioxide 19 L (21-31) mmol/L BUN 10 (6.0-23.0) mg/dL Creatinine 0.8 (0.6-1.5) mg/dL Est Cr Clr Drug Dosing 131.10 mL/min Estimated GFR (MDRD) > 60.0 ml/min Glucose 130 H (60-110) mg/dL Calcium 8.1 L (8.8-10.8) mg/dL Med Orders - Current: Current Medications Acetaminophen (Tylenol) 650 mg PO Q4H PRN PRN Reason: Pain (Mild 1-3)/fever Last Admin: 05/27/17 17:46 Dose: 650 mg Enoxaparin Sodium (Lovenox) 40 mg SUBCUT DAILY [facility]ESSICA Last Admin: 05/28/17 08:51 Dose: 40 mg Vancomycin HCl 1 gm/Vancomycin HCl 500 mg/ Sodium Chloride 500 mls @ 333.333 mls/hr IV Q12H [facility] Last Admin: 05/28/17 05:12 Dose: 333.333 mls/hr Sodium Chloride (Normal Saline) 1,000 mls @ 125 mls/hr IV STAT [facility]ESSICA Last Admin: 05/27/17 21:17 Dose: 125 mls/hr Morphine Sulfate (Morphine) 2 mg IVPUSH Q2H PRN PRN Reason: Pain (severe 7-10) Last Admin: 05/27/17 12:46 Dose: 2 mg Ondansetron HCl (Zofran Odt) 4 mg PO Q4H PRN PRN Reason: nausea, able to take PO Oxycodone HCl (Oxycodone) 10 mg PO Q4H PRN PRN Reason: pain Last Admin: 05/27/17 17:47 Dose: 10 mg Temazepam (Restoril) 15 mg PO BEDTIME PRN PRN Reason: Sleep Last Admin: 05/26/17 21:48 Dose: 15 mg Vancomycin HCl (Pharmacy To Dose - Vancomycin) 1 dose .XX ASDIRECTED [facility] Discontinued Medications Acetaminophen (Tylenol) 650 mg PO NOW ONE Stop: 05/26/17 18:36 Last Admin: 05/26/17 19:05 Dose: 650 mg Calcium Carbonate/Glycine (Tums) 1,000 mg PO ONETIME ONE Stop: 05/27/17 10:04 Last Admin: 05/27/17 10:30 Dose: 1,000 mg Chlorpromazine HCl (Thorazine) 25 mg IM ONETIME ONE Stop: 05/28/17 10:08 Last Admin: 05/28/17 10:30 Dose: 25 mg Sodium Chloride (Normal Saline) 1,000 mls @ 999 mls/hr IV STAT ONE Stop: 05/26/17 19:34 Last Admin: 05/26/17 19:04 Dose: 999 mls/hr Vancomycin HCl 1 gm/ Sodium (Chloride) 250 mls @ 166 mls/hr IV ONETIME ONE Stop: 05/26/17 21:12 Last Admin: 05/26/17 20:33 Dose: 166 mls/hr Sodium Chloride (Normal Saline) 1,000 mls @ 250 mls/hr IV ASDIRECTED [facility] Last Admin: 05/27/17 09:29 Dose: 250 mls/hr Vancomycin HCl 1.5 gm/ Sodium (Chloride) 500 mls @ 333.333 mls/hr IV Q12H [facility] Last Admin: 05/27/17 07:32 Dose: Not Given Iopamidol (Isovue-370 (76%)) 50 ml IV .STK-MED ONE Stop: 05/26/17 07:26 Morphine Sulfate (Morphine) 2 mg IVPUSH Q2H PRN PRN Reason: Pain (severe 7-10) Stop: 05/27/17 21:09 Oxycodone HCl (Oxycodone) 5 mg PO Q4H PRN PRN Reason: Pain (moderate 4-6) Last Admin: 05/27/17 10:09 Dose: 5 mg Oxycodone HCl (Oxycodone) 5 mg PO ONETIME ONE Stop: 05/27/17 10:47 Last Admin: 05/27/17 11:07 Dose: 5 mg Pneumococcal Polyvalent Vaccine (Pneumovax 23) 0.5 ml IM .ONCE ONE Stop: 05/26/17 23:42 Potassium Chloride (Klor-Con M20) 40 meq PO ONETIME ONE Stop: 05/27/17 09:51 Last Admin: 05/27/17 10:30 Dose: 40 meq - Exam General: Alert, Oriented Lungs: Clear to Auscultation, Normal Respiratory Effort Cardiovascular: Regular Rate, Regular Rhythm GI/Abdominal Exam: Soft, Non-Tender Extremities: Other (red, and mild edema of anterior lower leg up to below knee) - Problem List Review Problem List Initiated/Reviewed/Updated: Yes - Plan Plan:: 52-year-old male admitted sepsis secondary to cellulitis of the right lower extremity. Cellulitis: continue vancomycin. appears to be improving but likely needs several more days of IV antibiotics VTE proph: Lovenox, SCD Dispo: 2-3 days
[2017-05-28] MEDS: Sodium Chloride 0.9% 1,000 ML IV SCH (15:45)
[2017-05-28] MEDS ORDERED: Metoclopramide 10 MG Tab PO PRN (16:01)
[2017-05-28] MEDS ORDERED: DEXTROSE 5% IV SCH ×3 (19:00)
[2017-05-28] MEDS ORDERED: WATER IV SCH ×3 (19:00)
[2017-05-28] MEDS ORDERED: VANCOMYCIN IV SCH ×4 (19:00→19:31)
[2017-05-28] MEDS ORDERED: SODIUM CHLORIDE 0.9% IV SCH (19:31)
[2017-05-28] MEDS: SODIUM CHLORIDE 0.9% IV SCH (19:53)
[2017-05-28] MEDS: VANCOMYCIN IV SCH (19:53)
[2017-05-29] MEDS: VANCOMYCIN IV SCH ×3 (03:53→21:20)
[2017-05-29] MEDS: SODIUM CHLORIDE 0.9% IV SCH ×3 (03:53→21:20)
[2017-05-29 04:58] LABS: CHLORIDE,CL 109 mmol/L (98-110); SODIUM,NA 136 mmol/L (136-146)
[2017-05-29] MEDS: Enoxaparin 40 MG/0.4 ML Syringe SUBCUT SCH (08:20)
--- NOTE | 2017-05-29 09:32 | PCM.PN ---
- General Info Date of Service: 05/29/17 Admission Dx/Problem (Free Text): Cellulites Subjective Update: Patient is doing ok this morning. Reports some pain to lateral R calf. No drainage. Reports fevers/chills. No chest pain or SOB and no abdominal pain or diarrhea. He feels he is getting somewhat better. MARTTI used from translation. Functional Status: Reports: Pain Controlled, Tolerating Diet, Ambulating, Urinating - Review of Systems General: Reports: Fever, Malaise HEENT: Reports: No Symptoms. Denies: Headaches, Sinus Congestion, Sore Throat Pulmonary: Reports: No Symptoms. Denies: Shortness of Breath, Cough, Sputum Cardiovascular: Reports: No Symptoms. Denies: Chest Pain, Edema Gastrointestinal: Reports: No Symptoms. Denies: Abdominal Pain, Nausea, Vomiting Genitourinary: Reports: No Symptoms. Denies: Dysuria, Frequency, Burning, Pain Musculoskeletal: Reports: Leg Pain (R lateral calf) Skin: Reports: Other (erythema to R lower leg) Neurological: Reports: No Symptoms. Denies: Confusion Psychiatric: Reports: No Symptoms. Denies: Confusion - Patient Data Vitals - Most Recent: Last Vital Signs Temp 98.6 F 05/29/17 08:00 Pulse 78 05/29/17 08:00 Resp 16 05/29/17 08:00 BP 106/59 L 05/29/17 08:00 Pulse Ox 96 05/29/17 08:00 Weight - Most Recent: 100 kg I&O - Last 24 Hours: Intake & Output 05/28/17 05/29/17 05/29/17 22:59 06:59 14:59 Intake Total 2003 950 Output Total 550 420 Balance 1453 530 Lab Results Last 24 Hours: Laboratory Results - last 24 hr 05/28/17 05/29/17 05/29/17 Range/Units 17:25 04:28 04:28 WBC 14.56 H (4.0-11.0) K/uL RBC 4.23 L (4.50-5.90) M/uL Hgb 12.5 L (13.0-17.0) g/dL Hct 36.5 L (38.0-50.0) % MCV 86.3 (80.0-98.0) fL MCH 29.6 (27.0-32.0) pg MCHC 34.2 (31.0-37.0) g/dL RDW Std Deviation 42.0 (28.0-62.0) fl RDW Coeff of Min 13 (11.0-15.0) % Plt Count 121 L (150-400) K/uL MPV 10.30 (7.40-12.00) fL Neut % (Auto) 85.2 H (48.0-80.0) % Lymph % (Auto) 7.3 L (16.0-40.0) % Day % (Auto) 7.3 (0.0-15.0) % Eos % (Auto) 0.1 (0.0-7.0) % Baso % (Auto) 0.1 (0.0-1.5) % Neut # (Auto) 12.4 H (1.4-5.7) K/uL Lymph # (Auto) 1.1 (0.6-2.4) K/uL Day # (Auto) 1.1 H (0.0-0.8) K/uL Eos # (Auto) 0.0 (0.0-0.7) K/uL Baso # (Auto) 0.0 (0.0-0.1) K/uL Nucleated RBC % 0.0 /100WBC Nucleated RBCs # 0 K/uL Sodium 136 (136-146) mmol/L Potassium 3.4 L (3.5-5.1) mmol/L Chloride 109 (98-110) mmol/L Carbon Dioxide 21 (21-31) mmol/L BUN 10 (6.0-23.0) mg/dL Creatinine 0.8 (0.6-1.5) mg/dL Est Cr Clr Drug Dosing 131.10 mL/min Estimated GFR (MDRD) > 60.0 ml/min Glucose 134 H (60-110) mg/dL Calcium 7.9 L (8.8-10.8) mg/dL Vancomycin Trough 3.9 L (5-15) ug/mL Chi Results Last 24 Hours: Microbiology 05/27/17 17:24 Aerobic Blood Culture - Preliminary Blood - Venous - Lab Draw NO GROWTH AFTER 1 DAY Anaerobic Blood Culture - Preliminary NO GROWTH AFTER 1 DAY 05/27/17 17:18 Aerobic Blood Culture - Preliminary Blood - Venous NO GROWTH AFTER 1 DAY Anaerobic Blood Culture - Preliminary NO GROWTH AFTER 1 DAY Med Orders - Current: Current Medications Acetaminophen (Tylenol) 650 mg PO Q4H PRN PRN Reason: Pain (Mild 1-3)/fever Last Admin: 05/27/17 17:46 Dose: 650 mg Enoxaparin Sodium (Lovenox) 40 mg SUBCUT DAILY [facility] Last Admin: 05/29/17 08:20 Dose: 40 mg Vancomycin HCl 1,000 mg/Vancomycin HCl 250 mg/ Sodium Chloride 250 mls @ 166.667 mls/hr IV Q8H [facility] Last Admin: 05/29/17 03:53 Dose: 166.667 mls/hr Metoclopramide HCl (Reglan) 10 mg PO Q6H PRN PRN Reason: Hiccups Morphine Sulfate (Morphine) 2 mg IVPUSH Q2H PRN PRN Reason: Pain (severe 7-10) Last Admin: 05/27/17 12:46 Dose: 2 mg Ondansetron HCl (Zofran Odt) 4 mg PO Q4H PRN PRN Reason: nausea, able to take PO Oxycodone HCl (Oxycodone) 10 mg PO Q4H PRN PRN Reason: pain Last Admin: 05/27/17 17:47 Dose: 10 mg Temazepam (Restoril) 15 mg PO BEDTIME PRN PRN Reason: Sleep Last Admin: 05/26/17 21:48 Dose: 15 mg Vancomycin HCl (Pharmacy To Dose - Vancomycin) 1 dose .XX ASDIRECTED [facility] Discontinued Medications Acetaminophen (Tylenol) 650 mg PO NOW ONE Stop: 05/26/17 18:36 Last Admin: 05/26/17 19:05 Dose: 650 mg Calcium Carbonate/Glycine (Tums) 1,000 mg PO ONETIME ONE Stop: 05/27/17 10:04 Last Admin: 05/27/17 10:30 Dose: 1,000 mg Chlorpromazine HCl (Thorazine) 25 mg IM ONETIME ONE Stop: 05/28/17 10:08 Last Admin: 05/28/17 10:30 Dose: 25 mg Chlorpromazine HCl (Thorazine) 25 mg IM ONETIME ONE Stop: 05/28/17 16:00 Last Admin: 05/28/17 17:12 Dose: Not Given Sodium Chloride (Normal Saline) 1,000 mls @ 999 mls/hr IV STAT ONE Stop: 05/26/17 19:34 Last Admin: 05/26/17 19:04 Dose: 999 mls/hr Vancomycin HCl 1 gm/ Sodium (Chloride) 250 mls @ 166 mls/hr IV ONETIME ONE Stop: 05/26/17 21:12 Last Admin: 05/26/17 20:33 Dose: 166 mls/hr Sodium Chloride (Normal Saline) 1,000 mls @ 250 mls/hr IV ASDIRECTED [facility] Last Admin: 05/27/17 09:29 Dose: 250 mls/hr Vancomycin HCl 1.5 gm/ Sodium (Chloride) 500 mls @ 333.333 mls/hr IV Q12H [facility] Last Admin: 05/27/17 07:32 Dose: Not Given Vancomycin HCl 1 gm/Vancomycin HCl 500 mg/ Sodium Chloride 500 mls @ 333.333 mls/hr IV Q12H [facility] Last Admin: 05/28/17 18:43 Dose: Not Given Sodium Chloride (Normal Saline) 1,000 mls @ 125 mls/hr IV STAT [facility] Last Admin: 05/28/17 15:45 Dose: 125 mls/hr Vancomycin HCl 1,000 mg/Vancomycin HCl 250 mg/Dextrose/Water 250 mls @ 166.667 mls/hr IV Q8H [facility] Last Admin: 05/28/17 20:46 Dose: Not Given Vancomycin HCl 1,000 mg/Vancomycin HCl 250 mg/ Sodium Chloride 250 mls @ 166.667 mls/hr IV Q8H [facility] Last Admin: 05/28/17 20:46 Dose: Not Given Iopamidol (Isovue-370 (76%)) 50 ml IV .STK-MED ONE Stop: 05/26/17 07:26 Morphine Sulfate (Morphine) 2 mg IVPUSH Q2H PRN PRN Reason: Pain (severe 7-10) Stop: 05/27/17 21:09 Oxycodone HCl (Oxycodone) 5 mg PO Q4H PRN PRN Reason: Pain (moderate 4-6) Last Admin: 05/27/17 10:09 Dose: 5 mg Oxycodone HCl (Oxycodone) 5 mg PO ONETIME ONE Stop: 05/27/17 10:47 Last Admin: 05/27/17 11:07 Dose: 5 mg Pneumococcal Polyvalent Vaccine (Pneumovax 23) 0.5 ml IM .ONCE ONE Stop: 05/26/17 23:42 Potassium Chloride (Klor-Con M20) 40 meq PO ONETIME ONE Stop: 05/27/17 09:51 Last Admin: 05/27/17 10:30 Dose: 40 meq - Exam General: Alert, Oriented, Cooperative, No Acute Distress Neck: Supple Lungs: Clear to Auscultation, Normal Respiratory Effort Cardiovascular: Regular Rate, Regular Rhythm GI/Abdominal Exam: Normal Bowel Sounds, Soft, Non-Tender, No Organomegaly, No Distention, No Abnormal Bruit, No Mass, Pelvis Stable Extremities: Normal Range of Motion, Normal Capillary Refill Wound/Incisions: No Drainage, Erythema, Other (questionable fluctuance to R lateral calf. Leg remains very warm to touch with tenderness to this reigon. He is able to move R knee, ankle and toes without increase in pain and no pain to motion of any of these joints.) Neurological: No New Focal Deficit Psy/Mental Status: Alert, Normal Affect, Normal Mood - Problem List & Annotations (1) Cellulitis SNOMED Code(s): 362950665 Code(s): L03.90 - CELLULITIS, UNSPECIFIED Status: Acute Priority: High Current Visit: Yes Qualifiers: Site of cellulitis: extremity Site of cellulitis of extremity: lower extremity Laterality: right Qualified Code(s): L03.115 - Cellulitis of right lower limb (2) Sepsis SNOMED Code(s): 86170341 Code(s): A41.9 - SEPSIS, UNSPECIFIED ORGANISM Status: Resolved Priority: High Current Visit: Yes Qualifiers: Sepsis type: methicillin resistant Staphylococcus aureus Qualified Code(s) : A41.02 - Sepsis due to Methicillin resistant Staphylococcus aureus (3) Venous stasis ulcer Status: Chronic Current Visit: Yes Qualifiers: Venous stasis ulcer site: calf Varicose vein presence: unspecified whether present Laterality: right Non-pressure ulcer stage: unspecified non- pressure ulcer stage Qualified Code(s): I83.012 - Varicose veins of right lower extremity with ulcer of calf; L97.219 - Non-pressure chronic ulcer of right calf with unspecified severity; L97.219 - Non-pressure chronic ulcer of right calf with unspecified severity; L97.219 - Non-pressure chronic ulcer of right calf with unspecified severity; L97.219 - Non-pressure chronic ulcer of right calf with unspecified severity - Problem List Review Problem List Initiated/Reviewed/Updated: Yes - Plan Plan:: 52-year-old male admitted 05/26/17 sepsis secondary to cellulitis of the right lower extremity. 1. Cellulitis: Continue Vancomycin, leukocytosis continues to elevate, Will add Zosyn 3.375 mg Q6h IV today. Very slow improvement. Will obtain imaging today to rule out abscess, MRI w and wo contrast ordered. BC x 8 negative. Tmax 99.6 F. Elevated R leg as possible to reduce edema. Does have hx of venous stasis ulcers to this leg with notable venous stasis dermatitis or old healed wound scars. VTE prophylaxis: Lovenox Dispo: 3-4 days pending improvement.
[2017-05-29] MEDS: Piperacillin/Tazobactam 3.375 GM in Sodium Chloride 0.9% 50 ML IV SCH ×3 (10:09→22:56)
[2017-05-29] MEDS: Acetaminophen 325 MG Tab PO PRN (15:39)
[2017-05-29] MEDS ORDERED: Gadobenate Dimeglumine 529 MG/ML 20 ML SDV IVPUSH STA (18:45)
[2017-05-30] MEDS: Piperacillin/Tazobactam 3.375 GM in Sodium Chloride 0.9% 50 ML IV SCH ×4 (03:43→23:14)
[2017-05-30 06:06] LABS: CHLORIDE,CL 110 mmol/L (98-110); SODIUM,NA 139 mmol/L (136-146)
[2017-05-30] MEDS: Enoxaparin 40 MG/0.4 ML Syringe SUBCUT SCH (09:19)
[2017-05-30] MEDS ORDERED: Potassium Chloride 20 MEQ Tab.ER PO ONE (14:57)
--- NOTE | 2017-05-30 15:00 | PCM.PN ---
- Review of Systems Systems Review Comment:: erythema and edema the same as yesterday - Patient Data Vitals - Most Recent: Last Vital Signs Temp 36.8 C 05/30/17 12:00 Pulse 72 05/30/17 12:00 Resp 20 05/30/17 12:00 BP 119/68 05/30/17 12:00 Pulse Ox 98 05/30/17 12:00 Weight - Most Recent: 100 kg I&O - Last 24 Hours: Intake & Output 05/29/17 05/30/17 05/30/17 22:59 06:59 14:59 Intake Total 1190 450 Output Total 350 Balance 840 450 Lab Results Last 24 Hours: Laboratory Results - last 24 hr 05/29/17 05/30/17 05/30/17 Range/Units 19:32 04:57 04:57 WBC 10.62 (4.0-11.0) K/uL RBC 4.06 L (4.50-5.90) M/uL Hgb 12.2 L (13.0-17.0) g/dL Hct 35.2 L (38.0-50.0) % MCV 86.7 (80.0-98.0) fL MCH 30.0 (27.0-32.0) pg MCHC 34.7 (31.0-37.0) g/dL RDW Std Deviation 42.8 (28.0-62.0) fl RDW Coeff of Min 13 (11.0-15.0) % Plt Count 143 L (150-400) K/uL MPV 10.30 (7.40-12.00) fL Neut % (Auto) 81.4 H (48.0-80.0) % Lymph % (Auto) 10.3 L (16.0-40.0) % Tom[place]kins % (Auto) 7.7 (0.0-15.0) % Eos % (Auto) 0.4 (0.0-7.0) % Baso % (Auto) 0.2 (0.0-1.5) % Neut # (Auto) 8.7 H (1.4-5.7) K/uL Lymph # (Auto) 1.1 (0.6-2.4) K/uL Tompkins # (Auto) 0.8 (0.0-0.8) K/uL Eos # (Auto) 0.0 (0.0-0.7) K/uL Baso # (Auto) 0.0 (0.0-0.1) K/uL Nucleated RBC % 0.0 /100WBC Nucleated RBCs # 0 K/uL Sodium 139 (136-146) mmol/L Potassium 3.4 L (3.5-5.1) mmol/L Chloride 110 (98-110) mmol/L Carbon Dioxide 21 (21-31) mmol/L BUN 13 (6.0-23.0) mg/dL Creatinine 0.7 (0.6-1.5) mg/dL Est Cr Clr Drug Dosing 149.83 mL/min Estimated GFR (MDRD) > 60.0 ml/min Glucose 116 H (60-110) mg/dL Calcium 8.0 L (8.8-10.8) mg/dL Vancomycin Trough 6.8 (5-15) ug/mL Chi Results Last 24 Hours: Microbiology 05/27/17 17:24 Aerobic Blood Culture - Preliminary Blood - Venous - Lab Draw NO GROWTH AFTER 2 DAYS Anaerobic Blood Culture - Preliminary NO GROWTH AFTER 2 DAYS 05/27/17 17:18 Aerobic Blood Culture - Preliminary Blood - Venous NO GROWTH AFTER 2 DAYS Anaerobic Blood Culture - Preliminary NO GROWTH AFTER 2 DAYS Med Orders - Current: Current Medications Acetaminophen (Tylenol) 650 mg PO Q4H PRN PRN Reason: Pain (Mild 1-3)/fever Last Admin: 05/29/17 15:39 Dose: 650 mg Enoxaparin Sodium (Lovenox) 40 mg SUBCUT DAILY [facility] Last Admin: 05/30/17 09:19 Dose: 40 mg Piperacillin Sod/Tazobactam (Sod 3.375 gm/ Sodium Chloride) 50 mls @ 100 mls/ hr IV Q6H [facility] Last Admin: 05/30/17 11:05 Dose: 100 mls/hr Vancomycin HCl 1,000 mg/Vancomycin HCl 500 mg/ Sodium Chloride 500 mls @ 333.333 mls/hr IV Q8H [facility] Last Admin: 05/30/17 12:43 Dose: 333.333 mls/hr Metoclopramide HCl (Reglan) 10 mg PO Q6H PRN PRN Reason: Hiccups Morphine Sulfate (Morphine) 2 mg IVPUSH Q2H PRN PRN Reason: Pain (severe 7-10) Last Admin: 05/27/17 12:46 Dose: 2 mg Ondansetron HCl (Zofran Odt) 4 mg PO Q4H PRN PRN Reason: nausea, able to take PO Oxycodone HCl (Oxycodone) 10 mg PO Q4H PRN PRN Reason: pain Last Admin: 05/27/17 17:47 Dose: 10 mg Temazepam (Restoril) 15 mg PO BEDTIME PRN PRN Reason: Sleep Last Admin: 05/26/17 21:48 Dose: 15 mg Vancomycin HCl (Pharmacy To Dose - Vancomycin) 1 dose .XX ASDIRECTED [facility] Discontinued Medications Acetaminophen (Tylenol) 650 mg PO NOW ONE Stop: 05/26/17 18:36 Last Admin: 05/26/17 19:05 Dose: 650 mg Calcium Carbonate/Glycine (Tums) 1,000 mg PO ONETIME ONE Stop: 05/27/17 10:04 Last Admin: 05/27/17 10:30 Dose: 1,000 mg Chlorpromazine HCl (Thorazine) 25 mg IM ONETIME ONE Stop: 05/28/17 10:08 Last Admin: 05/28/17 10:30 Dose: 25 mg Chlorpromazine HCl (Thorazine) 25 mg IM ONETIME ONE Stop: 05/28/17 16:00 Last Admin: 05/28/17 17:12 Dose: Not Given Gadobenate Dimeglumine (Multihance) 20 ml IVPUSH ONETIME STA Stop: 05/29/17 18:46 Last Admin: 05/29/17 18:46 Dose: 19 ml Sodium Chloride (Normal Saline) 1,000 mls @ 999 mls/hr IV STAT ONE Stop: 05/26/17 19:34 Last Admin: 05/26/17 19:04 Dose: 999 mls/hr Vancomycin HCl 1 gm/ Sodium (Chloride) 250 mls @ 166 mls/hr IV ONETIME ONE Stop: 05/26/17 21:12 Last Admin: 05/26/17 20:33 Dose: 166 mls/hr Sodium Chloride (Normal Saline) 1,000 mls @ 250 mls/hr IV ASDIRECTED [facility]ESS[facility] Last Admin: 05/27/17 09:29 Dose: 250 mls/hr Vancomycin HCl 1.5 gm/ Sodium (Chloride) 500 mls @ 333.333 mls/hr IV Q12H [facility] Last Admin: 05/27/17 07:32 Dose: Not Given Vancomycin HCl 1 gm/Vancomycin HCl 500 mg/ Sodium Chloride 500 mls @ 333.333 mls/hr IV Q12H [facility] Last Admin: 05/28/17 18:43 Dose: Not Given Sodium Chloride (Normal Saline) 1,000 mls @ 125 mls/hr IV STAT [facility] Last Admin: 05/28/17 15:45 Dose: 125 mls/hr Vancomycin HCl 1,000 mg/Vancomycin HCl 250 mg/Dextrose/Water 250 mls @ 166.667 mls/hr IV Q8H [facility] Last Admin: 05/28/17 20:46 Dose: Not Given Vancomycin HCl 1,000 mg/Vancomycin HCl 250 mg/ Sodium Chloride 250 mls @ 166.667 mls/hr IV Q8H [facility] Last Admin: 05/28/17 20:46 Dose: Not Given Vancomycin HCl 1,000 mg/Vancomycin HCl 250 mg/ Sodium Chloride 250 mls @ 166.667 mls/hr IV Q8H [facility] Last Admin: 05/29/17 21:20 Dose: Not Given Iopamidol (Isovue-370 (76%)) 50 ml IV .STK-MED ONE Stop: 05/26/17 07:26 Morphine Sulfate (Morphine) 2 mg IVPUSH Q2H PRN PRN Reason: Pain (severe 7-10) Stop: 05/27/17 21:09 Oxycodone HCl (Oxycodone) 5 mg PO Q4H PRN PRN Reason: Pain (moderate 4-6) Last Admin: 05/27/17 10:09 Dose: 5 mg Oxycodone HCl (Oxycodone) 5 mg PO ONETIME ONE Stop: 05/27/17 10:47 Last Admin: 05/27/17 11:07 Dose: 5 mg Pneumococcal Polyvalent Vaccine (Pneumovax 23) 0.5 ml IM .ONCE ONE Stop: 05/26/17 23:42 Potassium Chloride (Klor-Con M20) 40 meq PO ONETIME ONE Stop: 05/27/17 09:51 Last Admin: 05/27/17 10:30 Dose: 40 meq - Exam General: Alert, Oriented Lungs: Clear to Auscultation, Normal Respiratory Effort Cardiovascular: Regular Rate, Regular Rhythm Extremities: Other (no noticible change in right leg edema and erythema) - Problem List Review Problem List Initiated/Reviewed/Updated: Yes - My Orders Last 24 Hours: My Active Orders 05/30/17 14:57 Potassium Chloride [Klor-Con M20] 40 meq PO ONETIME ONE - Plan Plan:: 52-year-old male admitted 05/26/17 sepsis secondary to cellulitis of the right lower extremity. 1. Cellulitis: leukocytosis resolved, Continue Vancomycin and zosyn. MRI reports no osteomylitis or abscess. VTE prophylaxis: Lovenox Dispo: 3-4 days pending improvement.
[2017-05-31] MEDS: Piperacillin/Tazobactam 3.375 GM in Sodium Chloride 0.9% 50 ML IV SCH ×4 (03:48→22:12)
[2017-05-31 06:49] LABS: CHLORIDE,CL 111 mmol/L (98-110); SODIUM,NA 139 mmol/L (136-146)
[2017-05-31] MEDS: Enoxaparin 40 MG/0.4 ML Syringe SUBCUT SCH (08:43)
[2017-05-31] MEDS: oxyCODONE 5 MG Tab PO PRN ×2 (09:01→20:33)
--- NOTE | 2017-05-31 10:28 | PCM.PN ---
- Review of Systems Systems Review Comment:: pain and redness improving - Patient Data Vitals - Most Recent: Last Vital Signs Temp 36.4 C 05/31/17 08:36 Pulse 75 05/31/17 08:36 Resp 18 05/31/17 08:36 BP 108/62 05/31/17 08:36 Pulse Ox 97 05/31/17 08:36 Weight - Most Recent: 100 kg I&O - Last 24 Hours: Intake & Output 05/30/17 05/31/17 05/31/17 22:59 06:59 14:59 Intake Total 1210 1400 Output Total 425 600 Balance 785 800 Lab Results Last 24 Hours: Laboratory Results - last 24 hr 05/30/17 05/31/17 05/31/17 Range/Units 19:27 06:12 06:12 WBC 8.68 (4.0-11.0) K/uL RBC 4.01 L (4.50-5.90) M/uL Hgb 11.9 L (13.0-17.0) g/dL Hct 35.1 L (38.0-50.0) % MCV 87.5 (80.0-98.0) fL MCH 29.7 (27.0-32.0) pg MCHC 33.9 (31.0-37.0) g/dL RDW Std Deviation 43.4 (28.0-62.0) fl RDW Coeff of Min 14 (11.0-15.0) % Plt Count 176 (150-400) K/uL MPV 9.60 (7.40-12.00) fL Neut % (Auto) 76.1 (48.0-80.0) % Lymph % (Auto) 13.4 L (16.0-40.0) % [place] % (Auto) 7.8 (0.0-15.0) % Eos % (Auto) 2.1 (0.0-7.0) % Baso % (Auto) 0.6 (0.0-1.5) % Neut # (Auto) 6.6 H (1.4-5.7) K/uL Lymph # (Auto) 1.2 (0.6-2.4) K/uL [place] # (Auto) 0.7 (0.0-0.8) K/uL Eos # (Auto) 0.2 (0.0-0.7) K/uL Baso # (Auto) 0.1 (0.0-0.1) K/uL Nucleated RBC % 0.0 /100WBC Nucleated RBCs # 0 K/uL Sodium 139 (136-146) mmol/L Potassium 3.6 (3.5-5.1) mmol/L Chloride 111 H (98-110) mmol/L Carbon Dioxide 21 (21-31) mmol/L BUN 11 (6.0-23.0) mg/dL Creatinine 0.8 (0.6-1.5) mg/dL Est Cr Clr Drug Dosing 131.10 mL/min Estimated GFR (MDRD) > 60.0 ml/min Glucose 108 (60-110) mg/dL Calcium 8.0 L (8.8-10.8) mg/dL Vancomycin Trough 12.9 (5-15) ug/mL Chi Results Last 24 Hours: Microbiology 05/27/17 17:24 Aerobic Blood Culture - Preliminary Blood - Venous - Lab Draw NO GROWTH AFTER 3 DAYS Anaerobic Blood Culture - Preliminary NO GROWTH AFTER 3 DAYS 05/27/17 17:18 Aerobic Blood Culture - Preliminary Blood - Venous NO GROWTH AFTER 3 DAYS Anaerobic Blood Culture - Preliminary NO GROWTH AFTER 3 DAYS Med Orders - Current: Current Medications Acetaminophen (Tylenol) 650 mg PO Q4H PRN PRN Reason: Pain (Mild 1-3)/fever Last Admin: 05/29/17 15:39 Dose: 650 mg Enoxaparin Sodium (Lovenox) 40 mg SUBCUT DAILY [facility] Last Admin: 05/31/17 08:43 Dose: 40 mg Piperacillin Sod/Tazobactam (Sod 3.375 gm/ Sodium Chloride) 50 mls @ 100 mls/ hr IV Q6H [facility] Last Admin: 05/31/17 08:49 Dose: 100 mls/hr Vancomycin HCl 1,000 mg/Vancomycin HCl 500 mg/ Sodium Chloride 500 mls @ 333.333 mls/hr IV Q8H [facility] Last Admin: 05/31/17 04:35 Dose: 333.333 mls/hr Metoclopramide HCl (Reglan) 10 mg PO Q6H PRN PRN Reason: Hiccups Morphine Sulfate (Morphine) 2 mg IVPUSH Q2H PRN PRN Reason: Pain (severe 7-10) Last Admin: 05/27/17 12:46 Dose: 2 mg Ondansetron HCl (Zofran Odt) 4 mg PO Q4H PRN PRN Reason: nausea, able to take PO Oxycodone HCl (Oxycodone) 10 mg PO Q4H PRN PRN Reason: pain Last Admin: 05/31/17 09:01 Dose: 10 mg Temazepam (Restoril) 15 mg PO BEDTIME PRN PRN Reason: Sleep Last Admin: 05/26/17 21:48 Dose: 15 mg Vancomycin HCl (Pharmacy To Dose - Vancomycin) 1 dose .XX ASDIRECTED [facility] Discontinued Medications Acetaminophen (Tylenol) 650 mg PO NOW ONE Stop: 05/26/17 18:36 Last Admin: 05/26/17 19:05 Dose: 650 mg Calcium Carbonate/Glycine (Tums) 1,000 mg PO ONETIME ONE Stop: 05/27/17 10:04 Last Admin: 05/27/17 10:30 Dose: 1,000 mg Chlorpromazine HCl (Thorazine) 25 mg IM ONETIME ONE Stop: 05/28/17 10:08 Last Admin: 05/28/17 10:30 Dose: 25 mg Chlorpromazine HCl (Thorazine) 25 mg IM ONETIME ONE Stop: 05/28/17 16:00 Last Admin: 05/28/17 17:12 Dose: Not Given Gadobenate Dimeglumine (Multihance) 20 ml IVPUSH ONETIME STA Stop: 05/29/17 18:46 Last Admin: 05/29/17 18:46 Dose: 19 ml Sodium Chloride (Normal Saline) 1,000 mls @ 999 mls/hr IV STAT ONE Stop: 05/26/17 19:34 Last Admin: 05/26/17 19:04 Dose: 999 mls/hr Vancomycin HCl 1 gm/ Sodium (Chloride) 250 mls @ 166 mls/hr IV ONETIME ONE Stop: 05/26/17 21:12 Last Admin: 05/26/17 20:33 Dose: 166 mls/hr Sodium Chloride (Normal Saline) 1,000 mls @ 250 mls/hr IV ASDIRECTED [facility] Last Admin: 05/27/17 09:29 Dose: 250 mls/hr Vancomycin HCl 1.5 gm/ Sodium (Chloride) 500 mls @ 333.333 mls/hr IV Q12H [facility] Last Admin: 05/27/17 07:32 Dose: Not Given Vancomycin HCl 1 gm/Vancomycin HCl 500 mg/ Sodium Chloride 500 mls @ 333.333 mls/hr IV Q12H [facility] Last Admin: 05/28/17 18:43 Dose: Not Given Sodium Chloride (Normal Saline) 1,000 mls @ 125 mls/hr IV STAT [facility] Last Admin: 05/28/17 15:45 Dose: 125 mls/hr Vancomycin HCl 1,000 mg/Vancomycin HCl 250 mg/Dextrose/Water 250 mls @ 166.667 mls/hr IV Q8H [facility] Last Admin: 05/28/17 20:46 Dose: Not Given Vancomycin HCl 1,000 mg/Vancomycin HCl 250 mg/ Sodium Chloride 250 mls @ 166.667 mls/hr IV Q8H [facility] Last Admin: 05/28/17 20:46 Dose: Not Given Vancomycin HCl 1,000 mg/Vancomycin HCl 250 mg/ Sodium Chloride 250 mls @ 166.667 mls/hr IV Q8H [facility] Last Admin: 05/29/17 21:20 Dose: Not Given Iopamidol (Isovue-370 (76%)) 50 ml IV .STK-MED ONE Stop: 05/26/17 07:26 Morphine Sulfate (Morphine) 2 mg IVPUSH Q2H PRN PRN Reason: Pain (severe 7-10) Stop: 05/27/17 21:09 Oxycodone HCl (Oxycodone) 5 mg PO Q4H PRN PRN Reason: Pain (moderate 4-6) Last Admin: 05/27/17 10:09 Dose: 5 mg Oxycodone HCl (Oxycodone) 5 mg PO ONETIME ONE Stop: 05/27/17 10:47 Last Admin: 05/27/17 11:07 Dose: 5 mg Pneumococcal Polyvalent Vaccine (Pneumovax 23) 0.5 ml IM .ONCE ONE Stop: 05/26/17 23:42 Potassium Chloride (Klor-Con M20) 40 meq PO ONETIME ONE Stop: 05/27/17 09:51 Last Admin: 05/27/17 10:30 Dose: 40 meq Potassium Chloride (Klor-Con M20) 40 meq PO ONETIME ONE Stop: 05/30/17 14:58 Last Admin: 05/30/17 16:44 Dose: 40 meq - Exam General: Alert, Oriented Lungs: Clear to Auscultation, Normal Respiratory Effort Cardiovascular: Regular Rate, Regular Rhythm GI/Abdominal Exam: Soft, Non-Tender Extremities: Other (erythema and edema of right leg improving, some wrinkling of skin on right lower leg) - Problem List Review Problem List Initiated/Reviewed/Updated: Yes - Plan Plan:: 52-year-old male admitted 05/26/17 sepsis secondary to cellulitis of the right lower extremity. 1. Cellulitis: Continue Vancomycin and zosyn. MRI reports no osteomylitis or abscess. VTE prophylaxis: Lovenox Dispo: possible discharge home tomorrow.
[2017-06-01] MEDS: Piperacillin/Tazobactam 3.375 GM in Sodium Chloride 0.9% 50 ML IV SCH ×4 (03:21→22:45)
[2017-06-01] MEDS: oxyCODONE 5 MG Tab PO PRN ×3 (03:28→19:25)
[2017-06-01 06:45] LABS: CHLORIDE,CL 108 mmol/L (98-110); SODIUM,NA 138 mmol/L (136-146)
[2017-06-01] MEDS: Enoxaparin 40 MG/0.4 ML Syringe SUBCUT SCH (10:02)
--- NOTE | 2017-06-01 14:10 | PCM.PN ---
- Review of Systems Systems Review Comment:: swelling and redness improving, but has right leg pain with walking. - Patient Data Vitals - Most Recent: Last Vital Signs Temp 36.3 C 06/01/17 11:33 Pulse 72 06/01/17 11:33 Resp 16 06/01/17 11:33 BP 115/65 06/01/17 11:33 Pulse Ox 96 06/01/17 11:33 Weight - Most Recent: 100 kg I&O - Last 24 Hours: Intake & Output 05/31/17 06/01/17 06/01/17 22:59 06:59 14:59 Intake Total 1600 1140 50 Output Total 750 1200 Balance 850 -60 50 Lab Results Last 24 Hours: Laboratory Results - last 24 hr 06/01/17 06/01/17 06/01/17 Range/Units 06:07 06:07 11:12 WBC 8.59 (4.0-11.0) K/uL RBC 4.19 L (4.50-5.90) M/uL Hgb 12.4 L (13.0-17.0) g/dL Hct 36.8 L (38.0-50.0) % MCV 87.8 (80.0-98.0) fL MCH 29.6 (27.0-32.0) pg MCHC 33.7 (31.0-37.0) g/dL RDW Std Deviation 43.5 (28.0-62.0) fl RDW Coeff of Min 14 (11.0-15.0) % Plt Count 223 (150-400) K/uL MPV 9.30 (7.40-12.00) fL Neut % (Auto) 74.9 (48.0-80.0) % Lymph % (Auto) 13.3 L (16.0-40.0) % [place] % (Auto) 9.3 (0.0-15.0) % Eos % (Auto) 2.2 (0.0-7.0) % Baso % (Auto) 0.3 (0.0-1.5) % Neut # (Auto) 6.4 H (1.4-5.7) K/uL Lymph # (Auto) 1.1 (0.6-2.4) K/uL [place] # (Auto) 0.8 (0.0-0.8) K/uL Eos # (Auto) 0.2 (0.0-0.7) K/uL Baso # (Auto) 0.0 (0.0-0.1) K/uL Nucleated RBC % 0.0 /100WBC Nucleated RBCs # 0 K/uL Sodium 138 (136-146) mmol/L Potassium 3.7 (3.5-5.1) mmol/L Chloride 108 (98-110) mmol/L Carbon Dioxide 23 (21-31) mmol/L BUN 10 (6.0-23.0) mg/dL Creatinine 0.8 (0.6-1.5) mg/dL Est Cr Clr Drug Dosing 131.10 mL/min Estimated GFR (MDRD) > 60.0 ml/min Glucose 108 (60-110) mg/dL Calcium 7.9 L (8.8-10.8) mg/dL Vancomycin Trough 12.5 (5-15) ug/mL Chi Results Last 24 Hours: Microbiology 05/27/17 17:24 Aerobic Blood Culture - Preliminary Blood - Venous - Lab Draw NO GROWTH AFTER 4 DAYS Anaerobic Blood Culture - Preliminary NO GROWTH AFTER 4 DAYS 05/27/17 17:18 Aerobic Blood Culture - Preliminary Blood - Venous NO GROWTH AFTER 4 DAYS Anaerobic Blood Culture - Preliminary NO GROWTH AFTER 4 DAYS Med Orders - Current: Current Medications Acetaminophen (Tylenol) 650 mg PO Q4H PRN PRN Reason: Pain (Mild 1-3)/fever Last Admin: 05/29/17 15:39 Dose: 650 mg Enoxaparin Sodium (Lovenox) 40 mg SUBCUT DAILY [facility] Last Admin: 06/01/17 10:02 Dose: 40 mg Piperacillin Sod/Tazobactam (Sod 3.375 gm/ Sodium Chloride) 50 mls @ 100 mls/ hr IV Q6H [facility] Last Admin: 06/01/17 10:03 Dose: 100 mls/hr Vancomycin HCl 1,000 mg/Vancomycin HCl 500 mg/ Sodium Chloride 500 mls @ 333.333 mls/hr IV Q8H [facility] Last Admin: 06/01/17 12:52 Dose: 333.333 mls/hr Metoclopramide HCl (Reglan) 10 mg PO Q6H PRN PRN Reason: Hiccups Morphine Sulfate (Morphine) 2 mg IVPUSH Q2H PRN PRN Reason: Pain (severe 7-10) Last Admin: 05/27/17 12:46 Dose: 2 mg Ondansetron HCl (Zofran Odt) 4 mg PO Q4H PRN PRN Reason: nausea, able to take PO Oxycodone HCl (Oxycodone) 10 mg PO Q4H PRN PRN Reason: pain Last Admin: 06/01/17 10:13 Dose: 10 mg Temazepam (Restoril) 15 mg PO BEDTIME PRN PRN Reason: Sleep Last Admin: 05/26/17 21:48 Dose: 15 mg Vancomycin HCl (Pharmacy To Dose - Vancomycin) 1 dose .XX ASDIRECTED [facility] Discontinued Medications Acetaminophen (Tylenol) 650 mg PO NOW ONE Stop: 05/26/17 18:36 Last Admin: 05/26/17 19:05 Dose: 650 mg Calcium Carbonate/Glycine (Tums) 1,000 mg PO ONETIME ONE Stop: 05/27/17 10:04 Last Admin: 05/27/17 10:30 Dose: 1,000 mg Chlorpromazine HCl (Thorazine) 25 mg IM ONETIME ONE Stop: 05/28/17 10:08 Last Admin: 05/28/17 10:30 Dose: 25 mg Chlorpromazine HCl (Thorazine) 25 mg IM ONETIME ONE Stop: 05/28/17 16:00 Last Admin: 05/28/17 17:12 Dose: Not Given Gadobenate Dimeglumine (Multihance) 20 ml IVPUSH ONETIME STA Stop: 05/29/17 18:46 Last Admin: 05/29/17 18:46 Dose: 19 ml Sodium Chloride (Normal Saline) 1,000 mls @ 999 mls/hr IV STAT ONE Stop: 05/26/17 19:34 Last Admin: 05/26/17 19:04 Dose: 999 mls/hr Vancomycin HCl 1 gm/ Sodium (Chloride) 250 mls @ 166 mls/hr IV ONETIME ONE Stop: 05/26/17 21:12 Last Admin: 05/26/17 20:33 Dose: 166 mls/hr Sodium Chloride (Normal Saline) 1,000 mls @ 250 mls/hr IV ASDIRECTED [facility] Last Admin: 05/27/17 09:29 Dose: 250 mls/hr Vancomycin HCl 1.5 gm/ Sodium (Chloride) 500 mls @ 333.333 mls/hr IV Q12H [facility] Last Admin: 05/27/17 07:32 Dose: Not Given Vancomycin HCl 1 gm/Vancomycin HCl 500 mg/ Sodium Chloride 500 mls @ 333.333 mls/hr IV Q12H [facility] Last Admin: 05/28/17 18:43 Dose: Not Given Sodium Chloride (Normal Saline) 1,000 mls @ 125 mls/hr IV STAT [facility] Last Admin: 05/28/17 15:45 Dose: 125 mls/hr Vancomycin HCl 1,000 mg/Vancomycin HCl 250 mg/Dextrose/Water 250 mls @ 166.667 mls/hr IV Q8H [facility] Last Admin: 05/28/17 20:46 Dose: Not Given Vancomycin HCl 1,000 mg/Vancomycin HCl 250 mg/ Sodium Chloride 250 mls @ 166.667 mls/hr IV Q8H [facility] Last Admin: 05/28/17 20:46 Dose: Not Given Vancomycin HCl 1,000 mg/Vancomycin HCl 250 mg/ Sodium Chloride 250 mls @ 166.667 mls/hr IV Q8H [facility] Last Admin: 05/29/17 21:20 Dose: Not Given Iopamidol (Isovue-370 (76%)) 50 ml IV .STK-MED ONE Stop: 05/26/17 07:26 Morphine Sulfate (Morphine) 2 mg IVPUSH Q2H PRN PRN Reason: Pain (severe 7-10) Stop: 05/27/17 21:09 Oxycodone HCl (Oxycodone) 5 mg PO Q4H PRN PRN Reason: Pain (moderate 4-6) Last Admin: 05/27/17 10:09 Dose: 5 mg Oxycodone HCl (Oxycodone) 5 mg PO ONETIME ONE Stop: 05/27/17 10:47 Last Admin: 05/27/17 11:07 Dose: 5 mg Pneumococcal Polyvalent Vaccine (Pneumovax 23) 0.5 ml IM .ONCE ONE Stop: 05/26/17 23:42 Potassium Chloride (Klor-Con M20) 40 meq PO ONETIME ONE Stop: 05/27/17 09:51 Last Admin: 05/27/17 10:30 Dose: 40 meq Potassium Chloride (Klor-Con M20) 40 meq PO ONETIME ONE Stop: 05/30/17 14:58 Last Admin: 05/30/17 16:44 Dose: 40 meq - Exam General: Alert, Oriented Lungs: Clear to Auscultation, Normal Respiratory Effort, Stridor Cardiovascular: Regular Rate GI/Abdominal Exam: Soft, Non-Tender Extremities: Other (right leg edema and erythem continue to improve) - Problem List Review Problem List Initiated/Reviewed/Updated: Yes - My Orders Last 24 Hours: My Active Orders 06/01/17 14:08 PT Evaluation and Treatment [CONS] Routine 06/02/17 05:11 BASIC METABOLIC PANEL,BMP [CHEM] AM CBC WITH AUTO DIFF [HEME] AM - Plan Plan:: 52-year-old male admitted 05/26/17 sepsis secondary to cellulitis of the right lower extremity. 1. Cellulitis: Continue Vancomycin and zosyn. MRI reports no osteomylitis or abscess. PT consulted for ambulation VTE prophylaxis: Lovenox Dispo: plan on discharge home tomorrow
[2017-06-02] MEDS: Piperacillin/Tazobactam 3.375 GM in Sodium Chloride 0.9% 50 ML IV SCH ×3 (03:39→16:57)
[2017-06-02 06:02] LABS: CHLORIDE,CL 106 mmol/L (98-110); SODIUM,NA 138 mmol/L (136-146)
[2017-06-02] MEDS: Enoxaparin 40 MG/0.4 ML Syringe SUBCUT SCH (08:00)
--- NOTE | 2017-06-02 12:24 | PCM.DCSUM1 ---
Discharge Summary - Hospital Course Brief History: 52-year-old Azeri only speaking male presenting to emergency department with chief complaint of redness and swelling to his right lateral calf 1 week. History is obtained through head housekeeper. Patient states is he began to have pain with associated redness and swelling to his right lower calf approximately one week ago. Since that time it has been steadily getting worse. He does have a history of venous stasis ulcer to the right lower extremity. Denies any recent trauma, numbness, tingling, or decreased range of motion. Patient denies any shortness of breath or hemoptysis and has no history of claudication. Patient currently denies any fever, chills, chest pain, palpitations, shortness breath, syncopal episodes, focal neurologic deficits, nausea, vomiting, or diarrhea. He takes no medications at home and denies diabetes. In the emergency department CBC revealed leukocytosis of 12.7 K, an elevated lactate at 3.8, with positive d-dimer 1.23. CMP was unremarkable. Plain films of tibia-fibula, venous Doppler, and CTA of chest negative for PE. Patient was febrile with maximum temp of 103 and tachycardic with maximum heart rate of 106. Normal O2 saturations with elevated blood pressure 159/80. Blood cultures were obtained and patient was started on vancomycin IV in the emergency department. Patient was admitted for sepsis secondary cellulitis. - Discharge Data Discharge Date: 06/02/17 Discharge Disposition: Home, Self-Care 01 Condition: Good - Discharge Diagnosis/Problem(s) (1) Cellulitis SNOMED Code(s): 576567547 ICD Code: L03.90 - CELLULITIS, UNSPECIFIED Status: Acute Priority: High Current Visit: Yes Qualifiers: Site of cellulitis: extremity Site of cellulitis of extremity: lower extremity Laterality: right Qualified Code(s): L03.115 - Cellulitis of right lower limb (2) Sepsis SNOMED Code(s): 43210967 ICD Code: A41.9 - SEPSIS, UNSPECIFIED ORGANISM Status: Resolved Priority : High Current Visit: Yes Qualifiers: Sepsis type: methicillin resistant Staphylococcus aureus Qualified Code(s) : A41.02 - Sepsis due to Methicillin resistant Staphylococcus aureus (3) Venous stasis ulcer Status: Chronic Current Visit: Yes Qualifiers: Venous stasis ulcer site: calf Varicose vein presence: unspecified whether present Laterality: right Non-pressure ulcer stage: unspecified non- pressure ulcer stage Qualified Code(s): I83.012 - Varicose veins of right lower extremity with ulcer of calf; L97.219 - Non-pressure chronic ulcer of right calf with unspecified severity; L97.219 - Non-pressure chronic ulcer of right calf with unspecified severity; L97.219 - Non-pressure chronic ulcer of right calf with unspecified severity; L97.219 - Non-pressure chronic ulcer of right calf with unspecified severity - Patient Summary/Data Consults: Consultations 06/01/17 14:08 PT Evaluation and Treatment [CONS] Routine - Patient Instructions Diet: Regular Diet as Tolerated Activity: As Tolerated, Elevate Extremity (Keep leg elevated to reduce swelling) , No Strenuous Activities Driving: Do Not Drive Showering/Bathing: May Shower Notify Provider of: Fever, Increased Pain, Swelling and Redness, Drainage, Nausea and/or Vomiting Other/Special Instructions: While taking antibiotics please monitor for diarrhea and blistering skin rash that may occur on face, chest or extremities. - Discharge Plan Prescriptions/Med Rec: Amoxicillin/Clavulanate K [Augmentin 875 MG/125 MG] 1 tab PO Q12HR #14 tablet Acetaminophen [Tylenol] 650 mg PO Q4H PRN #60 tablet PRN Reason: Pain (Mild 1-3)/fever Sulfamethoxazole/Trimethoprim [Bactrim Ds Tablet] 1 each PO BID #14 tablet Home Medications: Home Meds Acetaminophen [Tylenol] 650 mg PO Q4H PRN #60 tablet 06/02/17 [Rx] Amoxicillin/Clavulanate K [Augmentin 875 MG/125 MG] 1 tab PO Q12HR #14 tablet [Rx] Sulfamethoxazole/Trimethoprim [Bactrim Ds Tablet] 1 each PO BID #14 tablet 06/02 [Rx] Patient Handouts: Amoxicillin; Clavulanic Acid tablets, Cellulitis, Adult, Easy -to-Read, Acetaminophen tablets or caplets, Sulfamethoxazole; Trimethoprim, SMX- TMP tablets Referrals: Danyel Howell [Resident] - 06/05/17 9:30 am - Discharge Summary/Plan Comment DC Time >30 min.: No Discharge Summary/Plan Comment: Discharge Diagnoses: Cellulitis Hx venous stasis ulcers to R lower leg. Josemanuel was admitted and initially treated with Vancomycin, but leukocytosis continued and increased, fevers continued as well. BC were negative x 8. Zosyn was added and patient started to improve. Leukocytosis resolved as well as fevers. MRI of lower was obtained to rule out, abscess which none were seen. He was continued on Vancomycin and Augmentin throughout the weekend. Today edema and erythema is improved, but there is some redness that continues circumferentially. Some dry scaling skin, no obvious sores. 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 Pain is tolerable, but hurts worse with ambulation. Crutches provided to aid in ambulation. He will be sent home with 7 days of Augmentin and Bactrim DS BID. He will be set up with PCP and be seen in 1 week to insure improvement in cellulitis. He was encouraged to monitor for diarrhea and any blistering skin rashes that may occur on face or chest. This was translated to patient via [employer]. He had no further questions. He was encouraged to return to clinic or ED if concerns should arise. - General Info Date of Service: 06/02/17 Admission Dx/Problem (Free Text: Cellulites Subjective Update: Feeling better today, asking if he can go home yet. No chest pain or SOB. Pain is scant to R lower leg, worsening with ambulation. No pain to movement of joints. Functional Status: Reports: Pain Controlled, Tolerating Diet, Ambulating, Urinating - Review of Systems General: Reports: No Symptoms. Denies: Fever Pulmonary: Reports: No Symptoms. Denies: Shortness of Breath, Cough, Sputum Cardiovascular: Reports: No Symptoms. Denies: Chest Pain Gastrointestinal: Reports: No Symptoms. Denies: Abdominal Pain, Nausea, Vomiting Genitourinary: Reports: No Symptoms. Denies: Dysuria, Frequency, Burning Musculoskeletal: Reports: Leg Pain (only with ambulation) Skin: Reports: Other (Erythema improving) Neurological: Reports: No Symptoms. Denies: Confusion - Patient Data Vitals - Most Recent: Last Vital Signs Temp 97.4 F 06/02/17 07:56 Pulse 79 06/02/17 07:56 Resp 18 06/02/17 07:56 BP 123/67 06/02/17 07:56 Pulse Ox 95 06/02/17 07:56 Weight - Most Recent: 100 kg I&O - Last 24 hours: Intake & Output 06/01/17 06/02/17 06/02/17 22:59 06:59 14:59 Intake Total 1230 1750 Output Total 1420 1600 Balance -190 150 Lab Results - Last 24 hrs: Laboratory Results - last 24 hr 06/02/17 06/02/17 Range/Units 05:12 05:12 WBC 7.49 (4.0-11.0) K/uL RBC 4.40 L (4.50-5.90) M/uL Hgb 13.0 (13.0-17.0) g/dL Hct 38.7 (38.0-50.0) % MCV 88.0 (80.0-98.0) fL MCH 29.5 (27.0-32.0) pg MCHC 33.6 (31.0-37.0) g/dL RDW Std Deviation 43.0 (28.0-62.0) fl RDW Coeff of Min 13 (11.0-15.0) % Plt Count 242 (150-400) K/uL MPV 9.30 (7.40-12.00) fL Neut % (Auto) 71.6 (48.0-80.0) % Lymph % (Auto) 13.2 L (16.0-40.0) % [place] % (Auto) 11.7 (0.0-15.0) % Eos % (Auto) 2.8 (0.0-7.0) % Baso % (Auto) 0.7 (0.0-1.5) % Neut # (Auto) 5.4 (1.4-5.7) K/uL Lymph # (Auto) 1.0 (0.6-2.4) K/uL [place] # (Auto) 0.9 H (0.0-0.8) K/uL Eos # (Auto) 0.2 (0.0-0.7) K/uL Baso # (Auto) 0.1 (0.0-0.1) K/uL Nucleated RBC % 0.0 /100WBC Nucleated RBCs # 0 K/uL Sodium 138 (136-146) mmol/L Potassium 3.5 (3.5-5.1) mmol/L Chloride 106 (98-110) mmol/L Carbon Dioxide 24 (21-31) mmol/L BUN 9 (6.0-23.0) mg/dL Creatinine 0.8 (0.6-1.5) mg/dL Est Cr Clr Drug Dosing 131.10 mL/min Estimated GFR (MDRD) > 60.0 ml/min Glucose 106 (60-110) mg/dL Calcium 8.4 L (8.8-10.8) mg/dL MESFIN Results - Last 24 hrs: Microbiology 05/27/17 17:24 Aerobic Blood Culture - Final Blood - Venous - Lab Draw NO GROWTH AFTER 5 DAYS Anaerobic Blood Culture - Final NO GROWTH AFTER 5 DAYS 05/27/17 17:18 Aerobic Blood Culture - Final Blood - Venous NO GROWTH AFTER 5 DAYS Anaerobic Blood Culture - Final NO GROWTH AFTER 5 DAYS Med Orders - Current: Current Medications Acetaminophen (Tylenol) 650 mg PO Q4H PRN PRN Reason: Pain (Mild 1-3)/fever Last Admin: 05/29/17 15:39 Dose: 650 mg Enoxaparin Sodium (Lovenox) 40 mg SUBCUT DAILY JESSICA Last Admin: 06/02/17 08:00 Dose: 40 mg Piperacillin Sod/Tazobactam (Sod 3.375 gm/ Sodium Chloride) 50 mls @ 100 mls/ hr IV Q6H JESSICA Last Admin: 06/02/17 10:13 Dose: 100 mls/hr Vancomycin HCl 1,000 mg/Vancomycin HCl 500 mg/ Sodium Chloride 500 mls @ 333.333 mls/hr IV Q8H JESSICA Last Admin: 06/02/17 12:23 Dose: 333.333 mls/hr Metoclopramide HCl (Reglan) 10 mg PO Q6H PRN PRN Reason: Hiccups Morphine Sulfate (Morphine) 2 mg IVPUSH Q2H PRN PRN Reason: Pain (severe 7-10) Last Admin: 05/27/17 12:46 Dose: 2 mg Ondansetron HCl (Zofran Odt) 4 mg PO Q4H PRN PRN Reason: nausea, able to take PO Oxycodone HCl (Oxycodone) 10 mg PO Q4H PRN PRN Reason: pain Last Admin: 06/01/17 19:25 Dose: 10 mg Temazepam (Restoril) 15 mg PO BEDTIME PRN PRN Reason: Sleep Last Admin: 05/26/17 21:48 Dose: 15 mg Vancomycin HCl (Pharmacy To Dose - Vancomycin) 1 dose .XX ASDIRECTED [facility] Discontinued Medications Acetaminophen (Tylenol) 650 mg PO NOW ONE Stop: 05/26/17 18:36 Last Admin: 05/26/17 19:05 Dose: 650 mg Calcium Carbonate/Glycine (Tums) 1,000 mg PO ONETIME ONE Stop: 05/27/17 10:04 Last Admin: 05/27/17 10:30 Dose: 1,000 mg Chlorpromazine HCl (Thorazine) 25 mg IM ONETIME ONE Stop: 05/28/17 10:08 Last Admin: 05/28/17 10:30 Dose: 25 mg Chlorpromazine HCl (Thorazine) 25 mg IM ONETIME ONE Stop: 05/28/17 16:00 Last Admin: 05/28/17 17:12 Dose: Not Given Gadobenate Dimeglumine (Multihance) 20 ml IVPUSH ONETIME STA Stop: 05/29/17 18:46 Last Admin: 05/29/17 18:46 Dose: 19 ml Sodium Chloride (Normal Saline) 1,000 mls @ 999 mls/hr IV STAT ONE Stop: 05/26/17 19:34 Last Admin: 05/26/17 19:04 Dose: 999 mls/hr Vancomycin HCl 1 gm/ Sodium (Chloride) 250 mls @ 166 mls/hr IV ONETIME ONE Stop: 05/26/17 21:12 Last Admin: 05/26/17 20:33 Dose: 166 mls/hr Sodium Chloride (Normal Saline) 1,000 mls @ 250 mls/hr IV ASDIRECTED [facility] Last Admin: 05/27/17 09:29 Dose: 250 mls/hr Vancomycin HCl 1.5 gm/ Sodium (Chloride) 500 mls @ 333.333 mls/hr IV Q12H JESSICA Last Admin: 05/27/17 07:32 Dose: Not Given Vancomycin HCl 1 gm/Vancomycin HCl 500 mg/ Sodium Chloride 500 mls @ 333.333 mls/hr IV Q12H [facility] Last Admin: 05/28/17 18:43 Dose: Not Given Sodium Chloride (Normal Saline) 1,000 mls @ 125 mls/hr IV STAT [facility] Last Admin: 05/28/17 15:45 Dose: 125 mls/hr Vancomycin HCl 1,000 mg/Vancomycin HCl 250 mg/Dextrose/Water 250 mls @ 166.667 mls/hr IV Q8H [facility] Last Admin: 05/28/17 20:46 Dose: Not Given Vancomycin HCl 1,000 mg/Vancomycin HCl 250 mg/ Sodium Chloride 250 mls @ 166.667 mls/hr IV Q8H [facility] Last Admin: 05/28/17 20:46 Dose: Not Given Vancomycin HCl 1,000 mg/Vancomycin HCl 250 mg/ Sodium Chloride 250 mls @ 166.667 mls/hr IV Q8H [facility] Last Admin: 05/29/17 21:20 Dose: Not Given Iopamidol (Isovue-370 (76%)) 50 ml IV .STK-MED ONE Stop: 05/26/17 07:26 Morphine Sulfate (Morphine) 2 mg IVPUSH Q2H PRN PRN Reason: Pain (severe 7-10) Stop: 05/27/17 21:09 Oxycodone HCl (Oxycodone) 5 mg PO Q4H PRN PRN Reason: Pain (moderate 4-6) Last Admin: 05/27/17 10:09 Dose: 5 mg Oxycodone HCl (Oxycodone) 5 mg PO ONETIME ONE Stop: 05/27/17 10:47 Last Admin: 05/27/17 11:07 Dose: 5 mg Pneumococcal Polyvalent Vaccine (Pneumovax 23) 0.5 ml IM .ONCE ONE Stop: 05/26/17 23:42 Potassium Chloride (Klor-Con M20) 40 meq PO ONETIME ONE Stop: 05/27/17 09:51 Last Admin: 05/27/17 10:30 Dose: 40 meq Potassium Chloride (Klor-Con M20) 40 meq PO ONETIME ONE Stop: 05/30/17 14:58 Last Admin: 05/30/17 16:44 Dose: 40 meq - Exam General: Reports: Alert, Oriented, Cooperative, No Acute Distress Lungs: Reports: Clear to Auscultation, Normal Respiratory Effort Cardiovascular: Reports: Regular Rate, Regular Rhythm GI/Abdominal Exam: Normal Bowel Sounds, Soft, Non-Tender, No Organomegaly, No Distention, No Abnormal Bruit, No Mass, Pelvis Stable Extremities: Normal Range of Motion, Pedal Edema (+1 to R foot and lower leg. Edema improving, some wrinkling noted to skin.) Skin: Reports: Dry, Other (chronic venous dermatitis changes noted, with dry scaling skin noted as well. ) Wound/Incisions: Reports: Erythema Improving Neurological: Reports: No New Focal Deficit Psy/Mental Status: Reports: Alert, Normal Affect, Normal Mood *Q Meaningful Use (DIS) - VTE *Q VTE Criteria *Q: - Stroke *Q Stroke Criteria *Q: - AMI *Q AMI Criteria *Q:
--- NOTE | 2017-06-02 17:12 | MR ---
EXAM DATE: 05/26/17 PATIENT'S AGE: 52 Patient: CARLA PARIS Facility: [place], [place] Site . Site : [id number] Study: MRI Extremity Right [id number]/29/2017 7:35:28 PM Ordering Physician: Óscar Live Final Report: HISTORY: Cellulitis. Slow improvement. Evaluate for possible abscess. Technique: Routine long bone protocol including use of intravenous contrast. Findings: There is prominent diffuse increased T2 signal intensity and enhancement throughout the subcutaneous fat circumferentially throughout the lower leg with diffuse skin thickening consistent with severe edema presumably due to cellulitis. There is a mild degree of increased T2 signal intensity in the posterior compartment musculature consistent with minor muscle edema. The lateral and anterior compartments are unremarkable. No fluid collection is noted to suggest abscess. Several venous varicosities are seen along the medial aspect of the right mid lower leg. No abnormality of bone marrow signal intensity is noted to suggest bony stress reaction, fracture, tumor or osteomyelitis. Impression: Evidence for severe cellulitis. No findings for abscess or osteomyelitis. Dictated by Luis Le MD @ May 30 2017 8:46AM (Electronic Signature) Report Signed by Proxy. ANDRÉS
== END 2017-06-02 16:00 | disposition home or self-care (01) | DRG 872 ==
LOC: MW.ED 18:00 → MW.MS 19:43 → EDBD 19:43
PROVIDERS: ADMIT Family Medicine; ATTEND Family Medicine
DX: A41.02 Sepsis due to Methicillin resistant Staphylococcus aureus (principal); L03.115 Cellulitis of right lower limb; L97.219 Non-pressure chronic ulcer of right calf with unspecified severity; I83.012 Varicose veins of right lower extremity with ulcer of calf; F17.200 Nicotine dependence, unspecified, uncomplicated
CPT/HCPCS: 36415; 71275; 71275-26; 73590-26-RT; 73590-RT; 73720-26-RT; 73720-RT; 80048; 80053; 80202; 83036; 83605; 85025; 85379; 87040; 93971-26-RT; 93971-RT; 96361; 96374; 99284; 99285-25; A9270-GY; A9577; J1650; J2270; J2543; J3230; J3370; J7040; J7050; Q9967